=== PATIENT | male | born 1960 | race Caucasian/White ===

== ENCOUNTER 2019-12-14 02:08 | Outpatient (CLI) | payer MEDICAID, SELFPAY ==
[2019-12-14 09:52] LABS: Abs Immature Grans 0.03 10^3/uL (0.0-0.06); Absolute Basophil Count 0.04 10^3/uL (0.0-0.2); Absolute Eosinophil Count 0.14 10^3/uL (0.0-0.7); Absolute Lymphocyte Count 1.33 10^3/uL (1.2-3.4); Absolute Monocyte Count 0.56 10^3/uL (0.1-0.8); Absolute Neutrophil Count 4.45 10^3/uL (1.2-6.7); Basophils % 0.6; Eosinophils % 2.1; HCT 44.9 % (40.0-50.0); HGB 15.8 g/dL (13.5-17.5); Immature Grans % 0.5; Lymphocytes % 20.3; MCH 32.5 pg (27.0-33.0); MCHC 35.2 % (32.0-36.0); MCV 92.4 fL (80-95); MPV 8.3 fL (8.0-11.0); Monocytes % 8.5; Nucleated RBC 0 %; Platelet Count 156 10^3/uL (130-400); RBC 4.86 10^6/uL (4.36-5.78); RDW 14.1 % (11.8-14.1); RDW-SD 47.9 fL; WBC 6.55 10^3/uL (4.4-10.8)
[2019-12-14 10:06] LABS: ALT 16 U/L (16-63); AST 14 U/L (15-37); Albumin 3.9 g/dL (3.4-5.0); Alkaline Phosphatase 63 U/L (46-116); Anion Gap 4.3 mmol/L (3-11); BUN 12 mg/dL (7-18); Bilirubin, Total 0.4 mg/dL (0.2-1.0); CO2 32.7 mmol/L (21.0-32.0); CREATININE 0.84 mg/dL (0.70-1.30); Calcium 9.7 mg/dL (8.5-10.1); Chloride 100 mmol/L (98-107); Glucose 87 mg/dL (74-106); Potassium 4.3 mmol/L (3.5-5.1); Sodium 137 mmol/L (136-145); Total Protein 7.7 g/dL (6.4-8.2)
[2019-12-14 12:50] LABS: Bilirubin Negative (Negative); Blood Small (Negative); Clarity Clear (Clear); Glucose Negative (Negative); Ketones Negative (Negative); Leukocyte Esterase Negative (Negative); Nitrite Negative (Negative); Specific Gravity 1.025 (1.005-1.025); Urobilinogen 0.2 EU/dL (Up TO 0.2); pH 5.5 (5-8)
[2019-12-14 12:58] LABS: Bacteria Rare HPF (Negative); C & S Indicated? No; Casts Negative LPF (Negative); Crystals Negative HPF (Negative); Epithelial Cells Rare HPF (Negative); Mucus Trace (Negative); WBC 0-2 HPF (0-5)
== END 2019-12-14 02:28 ==
PROVIDERS: Nurse Practitioner Adult Health; Visit Provider Nurse Practitioner Family
DX: Z79.899 Other long term (current) drug therapy (principal); C71.9 Malignant neoplasm of brain, unspecified
CPT/HCPCS: 36415; 80053; 81003; 81015; 85025

== ENCOUNTER 2019-12-28 08:59 | Outpatient (CLI) | payer MEDICAID, SELFPAY ==
[2019-12-28 09:11] LABS: Abs Immature Grans 0.01 10^3/uL (0.0-0.06); Absolute Basophil Count 0.03 10^3/uL (0.0-0.2); Absolute Eosinophil Count 0.06 10^3/uL (0.0-0.7); Absolute Lymphocyte Count 1.16 10^3/uL (1.2-3.4); Absolute Monocyte Count 0.66 10^3/uL (0.1-0.8); Absolute Neutrophil Count 3.55 10^3/uL (1.2-6.7); Basophils % 0.5; Eosinophils % 1.1; HCT 43.3 % (40.0-50.0); HGB 15.4 g/dL (13.5-17.5); Immature Grans % 0.2; Lymphocytes % 21.2; MCH 32.5 pg (27.0-33.0); MCHC 35.6 % (32.0-36.0); MCV 91.4 fL (80-95); MPV 8.3 fL (8.0-11.0); Monocytes % 12.1; Neutrophils % 64.9; Nucleated RBC 0 %; Platelet Count 120 10^3/uL (130-400); RBC 4.74 10^6/uL (4.36-5.78); RDW 14.1 % (11.8-14.1); RDW-SD 47.3 fL; WBC 5.47 10^3/uL (4.4-10.8)
[2019-12-28 09:14] LABS: Bilirubin Negative (Negative); Blood Small (Negative); Clarity Clear (Clear); Glucose Negative (Negative); Ketones Negative (Negative); Leukocyte Esterase Negative (Negative); Nitrite Negative (Negative); Specific Gravity 1.015 (1.005-1.025); Urobilinogen 0.2 EU/dL (Up TO 0.2)
[2019-12-28 09:24] LABS: Bacteria Negative HPF (Negative); C & S Indicated? No; Casts Negative LPF (Negative); Crystals Negative HPF (Negative); Epithelial Cells Negative HPF (Negative); Mucus Negative (Negative); WBC 0-2 HPF (0-5)
[2019-12-28 09:32] LABS: ALT 17 U/L (16-63); AST 13 U/L (15-37); Albumin 3.8 g/dL (3.4-5.0); Alkaline Phosphatase 62 U/L (46-116); Anion Gap 3.5 mmol/L (3-11); BUN 12 mg/dL (7-18); Bilirubin, Total 0.3 mg/dL (0.2-1.0); CO2 30.5 mmol/L (21.0-32.0); CREATININE 0.76 mg/dL (0.70-1.30); Calcium 9.2 mg/dL (8.5-10.1); Chloride 98 mmol/L (98-107); Glucose 91 mg/dL (74-106); Potassium 4.2 mmol/L (3.5-5.1); Sodium 132 mmol/L (136-145); Total Protein 7.5 g/dL (6.4-8.2)
== END 2019-12-28 09:19 ==
PROVIDERS: Internal Medicine; Visit Provider Nurse Practitioner Adult Health
DX: C71.9 Malignant neoplasm of brain, unspecified (principal); Z51.11 Encounter for antineoplastic chemotherapy
CPT/HCPCS: 36415; 80053; 81003; 81015; 85025

== ENCOUNTER 2020-01-11 08:23 | Outpatient (CLI) | payer MEDICAID, SELFPAY ==
[2020-01-11 08:44] LABS: Bilirubin Negative (Negative); Blood Moderate (Negative); Clarity Clear (Clear); Glucose Negative (Negative); Ketones Negative (Negative); Leukocyte Esterase Negative (Negative); Nitrite Negative (Negative); Urobilinogen 0.2 EU/dL (Up TO 0.2); pH 7.5 (5-8)
[2020-01-11 08:44] LABS: Abs Immature Grans 0.02 10^3/uL (0.0-0.06); Absolute Basophil Count 0.03 10^3/uL (0.0-0.2); Absolute Eosinophil Count 0.06 10^3/uL (0.0-0.7); Absolute Lymphocyte Count 1.12 10^3/uL (1.2-3.4); Absolute Monocyte Count 0.56 10^3/uL (0.1-0.8); Absolute Neutrophil Count 4.71 10^3/uL (1.2-6.7); Basophils % 0.5; Eosinophils % 0.9; HCT 40.9 % (40.0-50.0); HGB 14.8 g/dL (13.5-17.5); Immature Grans % 0.3; Lymphocytes % 17.2; MCH 33.3 pg (27.0-33.0); MCHC 36.2 % (32.0-36.0); MCV 91.9 fL (80-95); Monocytes % 8.6; Neutrophils % 72.5; Nucleated RBC 0 %; RBC 4.45 10^6/uL (4.36-5.78); RDW 14.6 % (11.8-14.1)
[2020-01-11 08:54] LABS: ALT 19 U/L (16-63); AST 15 U/L (15-37); Albumin 3.9 g/dL (3.4-5.0); Alkaline Phosphatase 63 U/L (46-116); BUN 13 mg/dL (7-18); Bilirubin, Total 0.5 mg/dL (0.2-1.0); CREATININE 0.85 mg/dL (0.70-1.30); Calcium 9.1 mg/dL (8.5-10.1); Chloride 97 mmol/L (98-107); Glucose 119 mg/dL (74-106); Potassium 4.5 mmol/L (3.5-5.1); Sodium 133 mmol/L (136-145); Total Protein 7.8 g/dL (6.4-8.2)
[2020-01-11 09:01] LABS: Bacteria Negative HPF (Negative); C & S Indicated? No; Crystals Rare Triple Phos HPF (Negative); Epithelial Cells Negative HPF (Negative); Mucus Negative (Negative); WBC 0-2 HPF (0-5)
[2020-01-11 09:11] LABS: Platelet Count 31 10^3/uL (130-400)
== END 2020-01-11 08:43 ==
PROVIDERS: PCP Family Medicine; Visit Provider Internal Medicine
DX: C71.9 Malignant neoplasm of brain, unspecified (principal); Z51.11 Encounter for antineoplastic chemotherapy
CPT/HCPCS: 36415; 80053; 81003; 81015; 85025

== ENCOUNTER 2020-01-18 08:44 | Outpatient (CLI) | payer MEDICAID, SELFPAY ==
[2020-01-18 08:57] LABS: Bilirubin Negative (Negative); Blood Moderate (Negative); Clarity Clear (Clear); Glucose Negative (Negative); Ketones Negative (Negative); Leukocyte Esterase Negative (Negative); Nitrite Negative (Negative); Urobilinogen 0.2 EU/dL (Up TO 0.2); pH 6.5 (5-8)
[2020-01-18 09:13] LABS: Bacteria Negative HPF (Negative); C & S Indicated? No; Casts Negative LPF (Negative); Crystals Negative HPF (Negative); Epithelial Cells Few HPF (Negative); Mucus Negative (Negative); Other Cells Few Spermatozoa (Negative); RBC 20-50 HPF (0-2); WBC 0-2 HPF (0-5)
[2020-01-18 09:17] LABS: Abs Immature Grans 0.01 10^3/uL (0.0-0.06); Absolute Basophil Count 0.02 10^3/uL (0.0-0.2); Absolute Eosinophil Count 0.09 10^3/uL (0.0-0.7); Absolute Lymphocyte Count 1.12 10^3/uL (1.2-3.4); Absolute Monocyte Count 0.35 10^3/uL (0.1-0.8); Absolute Neutrophil Count 4.07 10^3/uL (1.2-6.7); Basophils % 0.4; Eosinophils % 1.6; HCT 39.4 % (40.0-50.0); Immature Grans % 0.2; Lymphocytes % 19.8; MCH 32.9 pg (27.0-33.0); MCHC 35.5 % (32.0-36.0); MCV 92.7 fL (80-95); MPV 10.2 fL (8.0-11.0); Monocytes % 6.2; Neutrophils % 71.8; Nucleated RBC 0 %; RBC 4.25 10^6/uL (4.36-5.78); RDW 14.9 % (11.8-14.1); RDW-SD 49.9 fL; WBC 5.66 10^3/uL (4.4-10.8)
[2020-01-18 09:30] LABS: Platelet Count 33 10^3/uL (130-400)
[2020-01-18 09:31] LABS: ALT 17 U/L (16-63); AST 13 U/L (15-37); Albumin 4.1 g/dL (3.4-5.0); Alkaline Phosphatase 54 U/L (46-116); Anion Gap 8.8 mmol/L (3-11); BUN 12 mg/dL (7-18); Bilirubin, Total 0.3 mg/dL (0.2-1.0); CO2 30.2 mmol/L (21.0-32.0); CREATININE 0.89 mg/dL (0.70-1.30); Calcium 9.2 mg/dL (8.5-10.1); Chloride 97 mmol/L (98-107); Glucose 118 mg/dL (74-106); Potassium 4.5 mmol/L (3.5-5.1); Sodium 136 mmol/L (136-145); Total Protein 7.8 g/dL (6.4-8.2)
== END 2020-01-18 09:04 ==
PROVIDERS: PCP Family Medicine; Visit Provider Internal Medicine
DX: C71.9 Malignant neoplasm of brain, unspecified (principal); Z51.11 Encounter for antineoplastic chemotherapy
CPT/HCPCS: 36415; 80053; 81003; 81015; 85025

== ENCOUNTER 2020-01-25 00:20 | Outpatient (CLI) | payer MEDICAID, SELFPAY ==
--- NOTE | 2020-01-25 | DI.MRI_ITS ---
EXAM: MR BRAIN WO/W CLINICAL HISTORY: F/U GLIOBLASTOMA,C71.9,ON LOMUSTINE AND AVASIN. TECHNIQUE: Multiplanar multisequence MRI was performed. COMPARISON: MR MRI BRAIN WWO from 11/23/2019 FINDINGS: MR examination of the brain was performed according to the usual protocol with additional post contra st axial and coronal T1 weighted imaging. Examination is compared with prior study from [facility] of November 22. 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 Comparison with the prior e xamination again shows postoperative encephalomalacia. Mild enhancement at the periphery of the rese ction site posteriorly is noted but is less prominent than on the prior examination. No new area of enhancement seen. Mild ex vacuo phenomenon of right lateral ventricle again noted. No new area of s ignal abnormality. The orbital and temporal bone structures appear intact. There is normal flow void in the [place] vasculature. Pituitary is unremarkable. IMPRESSION: Right temporal tumor resection site shows decreased peripheral enhancement in comparison with prior e xamination of November 22. No other significant change. DATA REPOSITORY:
[2020-01-25 08:53] LABS: HCT 36.8 % (40.0-50.0); HGB 13.1 g/dL (13.5-17.5); MCH 32.8 pg (27.0-33.0); MCHC 35.6 % (32.0-36.0); MPV 9.5 fL (8.0-11.0); Nucleated RBC 0 %; RDW-SD 49.3 fL; WBC 2.92 10^3/uL (4.4-10.8)
[2020-01-25 09:06] LABS: Platelet Count 74 10^3/uL (130-400)
[2020-01-25 09:07] LABS: Absolute Lymphocyte Count 0.91 10^3/uL (1.2-3.4); Absolute Monocyte Count 0.29 10^3/uL (0.1-0.8); Absolute Neutrophil Count 1.64 10^3/uL (1.2-6.7); Atypical Lymphocytes % 1
[2020-01-25 09:08] LABS: Absolute Eosinophil Count 0.06 10^3/uL (0.0-0.7); Diff Comment Manual Differential; Myelocytes % 1; Polychromasia Present
[2020-01-25] MEDS: Normal Saline Flush 10 ML SYR IVP (09:24)
[2020-01-25] MEDS: Gadoterate meglumine 20 ML VIAL 16 ML IVP (09:25)
== END 2020-01-25 00:40 ==
PROVIDERS: PCP Family Medicine; Visit Provider Internal Medicine
DX: C71.9 Malignant neoplasm of brain, unspecified (principal)
CPT/HCPCS: 70553; 85025

== ENCOUNTER 2020-02-08 02:58 | Outpatient (RCR) | payer MEDICAID, SELFPAY | END 2020-03-01 23:59 | disposition home or self-care (01) | LOC: INF 02:58 | PROVIDERS: PCP Family Medicine; Visit Provider Nurse Practitioner Adult Health | DX: Z53.9 Procedure and treatment not carried out, unspecified reason (principal) ==

== ENCOUNTER 2020-02-08 03:12 | Outpatient (CLI) | payer MEDICAID, SELFPAY ==
[2020-02-08 08:31] LABS: Abs Immature Grans 0.03 10^3/uL (0.0-0.06); Absolute Basophil Count 0.04 10^3/uL (0.0-0.2); Absolute Eosinophil Count 0.02 10^3/uL (0.0-0.7); Absolute Lymphocyte Count 1.02 10^3/uL (1.2-3.4); Absolute Monocyte Count 0.63 10^3/uL (0.1-0.8); Absolute Neutrophil Count 2.31 10^3/uL (1.2-6.7); Eosinophils % 0.5; HCT 38.6 % (40.0-50.0); HGB 13.7 g/dL (13.5-17.5); Immature Grans % 0.7; Lymphocytes % 25.2; MCH 33.4 pg (27.0-33.0); MCHC 35.5 % (32.0-36.0); MCV 94.1 fL (80-95); MPV 8.6 fL (8.0-11.0); Monocytes % 15.6; Nucleated RBC 0 %; Platelet Count 151 10^3/uL (130-400); RDW 16.5 % (11.8-14.1); RDW-SD 56.8 fL; WBC 4.05 10^3/uL (4.4-10.8)
[2020-02-08 08:33] LABS: Bilirubin Negative (Negative); Blood Small (Negative); Clarity Clear (Clear); Glucose Negative (Negative); Ketones Negative (Negative); Leukocyte Esterase Negative (Negative); Nitrite Negative (Negative); Urobilinogen 0.2 EU/dL (Up TO 0.2); pH 6.5 (5-8)
[2020-02-08 08:42] LABS: ALT 18 U/L (16-63); AST 11 U/L (15-37); Albumin 3.7 g/dL (3.4-5.0); Alkaline Phosphatase 57 U/L (46-116); Anion Gap 6.1 mmol/L (3-11); BUN 10 mg/dL (7-18); Bilirubin, Total 0.2 mg/dL (0.2-1.0); CO2 26.9 mmol/L (21.0-32.0); CREATININE 0.95 mg/dL (0.70-1.30); Chloride 100 mmol/L (98-107); Glucose 129 mg/dL (74-106); Potassium 4.1 mmol/L (3.5-5.1); Sodium 133 mmol/L (136-145); Total Protein 7.3 g/dL (6.4-8.2)
[2020-02-08 08:43] LABS: Bacteria Rare HPF (Negative); C & S Indicated? No; Casts Negative LPF (Negative); Crystals Negative HPF (Negative); Epithelial Cells Negative HPF (Negative); Mucus Moderate (Negative); WBC 0-2 HPF (0-5)
== END 2020-02-08 03:32 ==
PROVIDERS: Nurse Practitioner Adult Health; PCP Family Medicine; Visit Provider Internal Medicine
DX: C71.9 Malignant neoplasm of brain, unspecified (principal); Z51.11 Encounter for antineoplastic chemotherapy
CPT/HCPCS: 36415; 80053; 81003; 81015; 85025

== ENCOUNTER 2020-02-22 02:43 | Outpatient (CLI) | payer MEDICAID, SELFPAY ==
[2020-02-22 11:38] LABS: Abs Immature Grans 0.04 10^3/uL (0.0-0.06); Absolute Basophil Count 0.04 10^3/uL (0.0-0.2); Absolute Eosinophil Count 0.14 10^3/uL (0.0-0.7); Absolute Lymphocyte Count 1.23 10^3/uL (1.2-3.4); Absolute Monocyte Count 0.65 10^3/uL (0.1-0.8); Absolute Neutrophil Count 3.45 10^3/uL (1.2-6.7); Basophils % 0.7; Eosinophils % 2.5; HCT 38.6 % (40.0-50.0); HGB 13.9 g/dL (13.5-17.5); Immature Grans % 0.7; Lymphocytes % 22.2; MCH 33.8 pg (27.0-33.0); MCV 93.9 fL (80-95); MPV 8.5 fL (8.0-11.0); Monocytes % 11.7; Neutrophils % 62.2; Nucleated RBC 0 %; Platelet Count 145 10^3/uL (130-400); RBC 4.11 10^6/uL (4.36-5.78); RDW 17.2 % (11.8-14.1); RDW-SD 59.8 fL; WBC 5.55 10^3/uL (4.4-10.8)
[2020-02-22 11:40] LABS: Bilirubin Negative (Negative); Blood Moderate (Negative); Clarity Clear (Clear); Glucose Negative (Negative); Ketones Negative (Negative); Leukocyte Esterase Negative (Negative); Nitrite Negative (Negative); Specific Gravity 1.025 (1.005-1.025); Urobilinogen 0.2 EU/dL (Up TO 0.2)
[2020-02-22 11:59] LABS: ALT 23 U/L (16-63); AST 14 U/L (15-37); Albumin 3.7 g/dL (3.4-5.0); Alkaline Phosphatase 46 U/L (46-116); Anion Gap 8.7 mmol/L (3-11); BUN 16 mg/dL (7-18); Bilirubin, Total 0.3 mg/dL (0.2-1.0); CO2 26.3 mmol/L (21.0-32.0); CREATININE 0.97 mg/dL (0.70-1.30); Chloride 99 mmol/L (98-107); Glucose 129 mg/dL (74-106); Sodium 134 mmol/L (136-145); Total Protein 7.4 g/dL (6.4-8.2)
[2020-02-22 12:03] LABS: WBC 0-2 HPF (0-5)
[2020-02-22 12:04] LABS: Bacteria Rare HPF (Negative); C & S Indicated? No; Casts Negative LPF (Negative); Crystals Negative HPF (Negative); Epithelial Cells Rare HPF (Negative); Mucus Negative (Negative)
== END 2020-02-22 03:03 ==
PROVIDERS: PCP Family Medicine; Visit Provider Internal Medicine
DX: C71.9 Malignant neoplasm of brain, unspecified (principal); Z51.11 Encounter for antineoplastic chemotherapy
CPT/HCPCS: 36415; 80053; 81003; 81015; 85025

== ENCOUNTER 2020-03-07 04:54 | Outpatient (CLI) | payer MEDICAID, SELFPAY ==
[2020-03-07 11:22] LABS: Abs Immature Grans 0.02 10^3/uL (0.0-0.06); Absolute Basophil Count 0.05 10^3/uL (0.0-0.2); Absolute Eosinophil Count 0.13 10^3/uL (0.0-0.7); Absolute Lymphocyte Count 1.06 10^3/uL (1.2-3.4); Absolute Monocyte Count 0.71 10^3/uL (0.1-0.8); Absolute Neutrophil Count 4.18 10^3/uL (1.2-6.7); Basophils % 0.8; Eosinophils % 2.1; HCT 42.2 % (40.0-50.0); HGB 14.8 g/dL (13.5-17.5); Immature Grans % 0.3; Lymphocytes % 17.2; MCH 33.7 pg (27.0-33.0); MCHC 35.1 % (32.0-36.0); MCV 96.1 fL (80-95); MPV 8.5 fL (8.0-11.0); Monocytes % 11.5; Neutrophils % 68.1; Nucleated RBC 0 %; Platelet Count 148 10^3/uL (130-400); RBC 4.39 10^6/uL (4.36-5.78); RDW 16.5 % (11.8-14.1); RDW-SD 58.9 fL; WBC 6.15 10^3/uL (4.4-10.8)
[2020-03-07 11:23] LABS: Bilirubin Negative (Negative); Blood Small (Negative); Clarity Clear (Clear); Glucose Negative (Negative); Ketones Negative (Negative); Leukocyte Esterase Negative (Negative); Nitrite Negative (Negative); Specific Gravity 1.025 (1.005-1.025); Urobilinogen 0.2 EU/dL (Up TO 0.2)
[2020-03-07 11:35] LABS: Bacteria Negative HPF (Negative); C & S Indicated? No; Casts Negative LPF (Negative); Crystals Negative HPF (Negative); Epithelial Cells Rare HPF (Negative); Mucus Negative (Negative); WBC 0-2 HPF (0-5)
[2020-03-07 12:43] LABS: ALT 24 U/L (16-63); AST 13 U/L (15-37)
[2020-03-07 12:49] LABS: Calcium 9.1 mg/dL (8.5-10.1); Glucose 116 mg/dL (74-106)
[2020-03-07 12:50] LABS: Albumin 3.7 g/dL (3.4-5.0); BUN 13 mg/dL (7-18); Bilirubin, Total 0.3 mg/dL (0.2-1.0); CREATININE 0.85 mg/dL (0.70-1.30); Total Protein 7.7 g/dL (6.4-8.2)
[2020-03-07 12:51] LABS: Alkaline Phosphatase 54 U/L (46-116); Anion Gap 8.5 mmol/L (3-11); CO2 29.5 mmol/L (21.0-32.0); Chloride 97 mmol/L (98-107); Potassium 4.1 mmol/L (3.5-5.1); Sodium 135 mmol/L (136-145)
== END 2020-03-07 05:14 ==
PROVIDERS: PCP Family Medicine; Visit Provider Internal Medicine
DX: C71.9 Malignant neoplasm of brain, unspecified (principal); Z51.11 Encounter for antineoplastic chemotherapy
CPT/HCPCS: 36415; 80053; 81003; 81015; 85025

== ENCOUNTER 2020-03-21 02:03 | Outpatient (CLI) | payer MEDICAID, SELFPAY ==
--- NOTE | 2020-03-21 | DI.MRI_ITS ---
EXAM: MR BRAIN WO/W CLINICAL HISTORY: H/O GLIOBLASTOMA,C71.9,ON TREATMENT,? RESPONSE TECHNIQUE: Multiplanar multisequence MRI of the brain was performed. CONTRAST MATERIAL: IV Contrast: 15 ML of Dotarem contrast administered. COMPARISON: MR MR BRAIN WO/W from 01/25/2020 MR MR BRAIN WO/W from 01/25/2020 FINDINGS: VENTRICLES AND EXTRA AXIAL SPACES: Stable compared to the prior examination. HEMORRHAGE: None. CEREBRAL PARENCHYMA: No focus of restricted diffusion to suggest acute infarct. There are again seen postsurgical changes of a glioblastoma removal from the right temporal lobe. Postsurgical encephalom alacia is again seen in the region. There has been no change in the hyperintense signal in the white matter on the T2 and FLAIR images or the enhancement pattern compared to the prior examination. No new areas of abnormal signal or enhancement are present. MIDLINE SHIFT: None. BRAINSTEM/CEREBELLUM: Normal. CALVARIUM: Findings of a prior right temporal craniotomy. ENHANCEMENT: No new areas of enhancement are seen compared to 01/25/2020. VISUALIZED PARANASAL SINUSES/MASTOIDS: Clear. [place]: Normal flow void. PITUITARY GLAND: Unremarkable. OTHER FINDINGS: IMPRESSION: Stable postsurgical changes involving the right temporal lobe. No new areas of abnormal signal or en hancement are seen. DATA REPOSITORY:
[2020-03-21 08:08] LABS: Bilirubin Negative (Negative); Blood Small (Negative); Clarity Clear (Clear); Glucose Negative (Negative); Ketones Negative (Negative); Leukocyte Esterase Negative (Negative); Nitrite Negative (Negative); Specific Gravity 1.025 (1.005-1.025); Urobilinogen 0.2 EU/dL (Up TO 0.2)
[2020-03-21 08:15] LABS: Abs Immature Grans 0.01 10^3/uL (0.0-0.06); Absolute Basophil Count 0.05 10^3/uL (0.0-0.2); Absolute Eosinophil Count 0.12 10^3/uL (0.0-0.7); Absolute Lymphocyte Count 0.98 10^3/uL (1.2-3.4); Absolute Monocyte Count 0.54 10^3/uL (0.1-0.8); Absolute Neutrophil Count 4.07 10^3/uL (1.2-6.7); Basophils % 0.9; Eosinophils % 2.1; HCT 43.7 % (40.0-50.0); HGB 15.1 g/dL (13.5-17.5); Immature Grans % 0.2; MCH 33.3 pg (27.0-33.0); MCHC 34.6 % (32.0-36.0); MCV 96.3 fL (80-95); MPV 8.6 fL (8.0-11.0); Monocytes % 9.4; Neutrophils % 70.4; Nucleated RBC 0 %; Platelet Count 131 10^3/uL (130-400); RBC 4.54 10^6/uL (4.36-5.78); RDW 15.6 % (11.8-14.1); RDW-SD 55.9 fL; WBC 5.77 10^3/uL (4.4-10.8)
[2020-03-21 08:20] LABS: Epithelial Cells Rare HPF (Negative); WBC 0-2 HPF (0-5)
[2020-03-21 08:21] LABS: Bacteria Rare HPF (Negative); C & S Indicated? No; Casts Negative LPF (Negative); Crystals Rare Amorphous HPF (Negative); Mucus Moderate (Negative)
[2020-03-21 08:32] LABS: ALT 22 U/L (16-63); AST 17 U/L (15-37); Albumin 3.8 g/dL (3.4-5.0); Alkaline Phosphatase 53 U/L (46-116); Anion Gap 3.9 mmol/L (3-11); BUN 13 mg/dL (7-18); Bilirubin, Total 0.4 mg/dL (0.2-1.0); CO2 31.1 mmol/L (21.0-32.0); CREATININE 0.96 mg/dL (0.70-1.30); Calcium 8.9 mg/dL (8.5-10.1); Chloride 98 mmol/L (98-107); Glucose 91 mg/dL (74-106); Potassium 3.8 mmol/L (3.5-5.1); Sodium 133 mmol/L (136-145); Total Protein 7.8 g/dL (6.4-8.2)
[2020-03-21] MEDS: Gadoterate meglumine 20 ML VIAL 15 ML IVP (08:44)
[2020-03-21] MEDS: Normal Saline Flush 10 ML SYR IVP (08:45)
== END 2020-03-21 02:23 ==
PROVIDERS: Nurse Practitioner Adult Health; PCP Family Medicine; Visit Provider Nurse Practitioner Family
DX: C71.9 Malignant neoplasm of brain, unspecified (principal); Z51.11 Encounter for antineoplastic chemotherapy
CPT/HCPCS: 70553; 80053; 81003; 81015; 85025

== ENCOUNTER 2020-03-21 03:16 | Outpatient (RCR) | payer MEDICAID, SELFPAY | END 2020-04-01 23:59 | disposition home or self-care (01) | LOC: INF 03:16 | PROVIDERS: PCP Family Medicine; Visit Provider Nurse Practitioner Adult Health | DX: Z53.9 Procedure and treatment not carried out, unspecified reason (principal) ==

== ENCOUNTER 2020-04-04 03:52 | Outpatient (CLI) | payer MEDICAID, SELFPAY ==
[2020-04-04 10:11] LABS: Abs Immature Grans 0.02 10^3/uL (0.0-0.06); Absolute Basophil Count 0.03 10^3/uL (0.0-0.2); Absolute Eosinophil Count 0.09 10^3/uL (0.0-0.7); Absolute Lymphocyte Count 0.89 10^3/uL (1.2-3.4); Absolute Monocyte Count 0.55 10^3/uL (0.1-0.8); Absolute Neutrophil Count 3.79 10^3/uL (1.2-6.7); Basophils % 0.6; Eosinophils % 1.7; HCT 42.6 % (40.0-50.0); HGB 15.1 g/dL (13.5-17.5); Immature Grans % 0.4; Lymphocytes % 16.6; MCH 33.6 pg (27.0-33.0); MCHC 35.4 % (32.0-36.0); MCV 94.7 fL (80-95); MPV 8.8 fL (8.0-11.0); Monocytes % 10.2; Neutrophils % 70.5; Nucleated RBC 0 %; Platelet Count 129 10^3/uL (130-400); RDW 14.6 % (11.8-14.1); RDW-SD 51.3 fL; WBC 5.37 10^3/uL (4.4-10.8)
[2020-04-04 10:13] LABS: Bilirubin Negative (Negative); Blood Trace-intact (Negative); Clarity Clear (Clear); Glucose Negative (Negative); Ketones Negative (Negative); Leukocyte Esterase Negative (Negative); Nitrite Negative (Negative); Urobilinogen 0.2 EU/dL (Up TO 0.2); pH 7.5 (5-8)
[2020-04-04 10:27] LABS: ALT 23 U/L (16-63); AST 17 U/L (15-37); Albumin 3.9 g/dL (3.4-5.0); Alkaline Phosphatase 54 U/L (46-116); Anion Gap 9.5 mmol/L (3-11); BUN 11 mg/dL (7-18); Bilirubin, Total 0.4 mg/dL (0.2-1.0); CO2 26.5 mmol/L (21.0-32.0); CREATININE 0.9 mg/dL (0.70-1.30); Calcium 9.4 mg/dL (8.5-10.1); Chloride 97 mmol/L (98-107); Glucose 114 mg/dL (74-106); Potassium 4.1 mmol/L (3.5-5.1); Sodium 133 mmol/L (136-145); Total Protein 7.9 g/dL (6.4-8.2)
[2020-04-04 10:50] LABS: Epithelial Cells Rare HPF (Negative); WBC 0-2 HPF (0-5)
[2020-04-04 10:51] LABS: Bacteria Rare HPF (Negative); C & S Indicated? No; Casts Negative LPF (Negative); Crystals Negative HPF (Negative); Mucus Negative (Negative)
== END 2020-04-04 03:53 | disposition home or self-care (01) ==
LOC: LBO 03:52
PROVIDERS: Nurse Practitioner Adult Health; PCP Family Medicine; Visit Provider Internal Medicine
DX: C71.9 Malignant neoplasm of brain, unspecified (principal); Z51.11 Encounter for antineoplastic chemotherapy
CPT/HCPCS: 36415; 80053; 81003; 81015; 85025

== ENCOUNTER 2020-04-18 03:19 | Outpatient (CLI) | payer MEDICAID, SELFPAY ==
[2020-04-18 10:50] LABS: Abs Immature Grans 0.02 10^3/uL (0.0-0.06); Absolute Basophil Count 0.03 10^3/uL (0.0-0.2); Absolute Eosinophil Count 0.08 10^3/uL (0.0-0.7); Absolute Lymphocyte Count 1.02 10^3/uL (1.2-3.4); Absolute Monocyte Count 0.49 10^3/uL (0.1-0.8); Absolute Neutrophil Count 3.06 10^3/uL (1.2-6.7); Basophils % 0.6; Eosinophils % 1.7; HCT 41.2 % (40.0-50.0); HGB 14.6 g/dL (13.5-17.5); Immature Grans % 0.4; Lymphocytes % 21.7; MCH 33.6 pg (27.0-33.0); MCHC 35.4 % (32.0-36.0); MCV 94.7 fL (80-95); Monocytes % 10.4; Neutrophils % 65.2; Nucleated RBC 0 %; Platelet Count 146 10^3/uL (130-400); RBC 4.35 10^6/uL (4.36-5.78); RDW 14.2 % (11.8-14.1); RDW-SD 49.6 fL
[2020-04-18 11:13] LABS: Bilirubin Negative (Negative); Blood Trace-intact (Negative); Clarity Clear (Clear); Glucose Negative (Negative); Ketones Negative (Negative); Leukocyte Esterase Negative (Negative); Nitrite Negative (Negative); Specific Gravity 1.025 (1.005-1.025); Urobilinogen 0.2 EU/dL (Up TO 0.2); pH 6.5 (5-8)
[2020-04-18 11:25] LABS: Epithelial Cells Rare HPF (Negative); Other Cells Moderate Spermatozoa (Negative); RBC 0-2 HPF (0-2); WBC 0-2 HPF (0-5)
[2020-04-18 11:26] LABS: Bacteria Rare HPF (Negative); C & S Indicated? No; Casts Negative LPF (Negative); Crystals Negative HPF (Negative); Mucus Trace (Negative)
[2020-04-18 11:52] LABS: ALT 19 U/L (16-63); AST 16 U/L (15-37); Albumin 3.8 g/dL (3.4-5.0); Alkaline Phosphatase 55 U/L (46-116); Anion Gap 11.3 mmol/L (3-11); BUN 14 mg/dL (7-18); Bilirubin, Total 0.3 mg/dL (0.2-1.0); CO2 26.7 mmol/L (21.0-32.0); CREATININE 0.9 mg/dL (0.70-1.30); Calcium 9.3 mg/dL (8.5-10.1); Chloride 98 mmol/L (98-107); Glucose 120 mg/dL (74-106); Potassium 4.1 mmol/L (3.5-5.1); Sodium 136 mmol/L (136-145); Total Protein 7.3 g/dL (6.4-8.2)
== END 2020-04-18 03:20 | disposition home or self-care (01) ==
LOC: LBO 03:19
PROVIDERS: PCP Family Medicine; Visit Provider Internal Medicine
DX: C71.9 Malignant neoplasm of brain, unspecified (principal); Z51.11 Encounter for antineoplastic chemotherapy
CPT/HCPCS: 36415; 80053; 81003; 81015; 85025

== ENCOUNTER 2020-05-02 04:25 | Outpatient (CLI) | payer MEDICAID, SELFPAY ==
[2020-05-02 09:43] LABS: Abs Immature Grans 0.02 10^3/uL (0.0-0.06); Absolute Basophil Count 0.04 10^3/uL (0.0-0.2); Absolute Eosinophil Count 0.08 10^3/uL (0.0-0.7); Absolute Lymphocyte Count 0.89 10^3/uL (1.2-3.4); Absolute Monocyte Count 0.61 10^3/uL (0.1-0.8); Absolute Neutrophil Count 3.53 10^3/uL (1.2-6.7); Basophils % 0.8; Eosinophils % 1.5; HCT 45.3 % (40.0-50.0); HGB 15.7 g/dL (13.5-17.5); Immature Grans % 0.4; Lymphocytes % 17.2; MCH 33.6 pg (27.0-33.0); MCHC 34.7 % (32.0-36.0); MPV 8.3 fL (8.0-11.0); Monocytes % 11.8; Neutrophils % 68.3; Nucleated RBC 0 %; Platelet Count 141 10^3/uL (130-400); RBC 4.67 10^6/uL (4.36-5.78); RDW 13.7 % (11.8-14.1); RDW-SD 49.1 fL; WBC 5.17 10^3/uL (4.4-10.8)
[2020-05-02 09:43] LABS: Bilirubin Negative (Negative); Blood Trace-intact (Negative); Clarity Clear (Clear); Glucose Negative (Negative); Ketones Negative (Negative); Leukocyte Esterase Negative (Negative); Nitrite Negative (Negative); Specific Gravity 1.025 (1.005-1.025); Urobilinogen 0.2 EU/dL (Up TO 0.2)
[2020-05-02 09:52] LABS: Epithelial Cells Rare HPF (Negative); RBC 0-2 HPF (0-2); WBC 0-2 HPF (0-5)
[2020-05-02 09:53] LABS: Bacteria Negative HPF (Negative); C & S Indicated? No; Casts Negative LPF (Negative); Crystals Negative HPF (Negative); Mucus Trace (Negative)
[2020-05-02 10:03] LABS: ALT 22 U/L (16-63); AST 17 U/L (15-37); Albumin 3.8 g/dL (3.4-5.0); Alkaline Phosphatase 60 U/L (46-116); Anion Gap 4.6 mmol/L (3-11); BUN 18 mg/dL (7-18); Bilirubin, Total 0.4 mg/dL (0.2-1.0); CO2 31.4 mmol/L (21.0-32.0); CREATININE 0.9 mg/dL (0.70-1.30); Calcium 9.5 mg/dL (8.5-10.1); Chloride 98 mmol/L (98-107); Glucose 105 mg/dL (74-106); Sodium 134 mmol/L (136-145)
== END 2020-05-02 04:26 | disposition home or self-care (01) ==
LOC: LBO 04:26
PROVIDERS: PCP Family Medicine; Visit Provider Internal Medicine
DX: C71.9 Malignant neoplasm of brain, unspecified (principal); Z51.11 Encounter for antineoplastic chemotherapy
CPT/HCPCS: 36415; 80053; 81003; 81015; 85025

== ENCOUNTER 2020-05-16 00:51 | Outpatient (CLI) | payer MEDICAID, SELFPAY ==
--- NOTE | 2020-05-16 | DI.MRI_ITS ---
EXAM: MR BRAIN WO/W CLINICAL HISTORY: F/U GLIOBLASTOMA,C71.9 TECHNIQUE: Multiplanar multisequence MRI of the brain was performed. Both noninfused and contrast i nfused sequences were performed. IV Contrast injected was 16 cc Dotarem. COMPARISON: MR MR BRAIN WO/W from 03/21/2020 MR MR BRAIN WO/W from 03/21/2020 FINDINGS: CEREBRAL PARENCHYMA: Again noted is evidence of right temporal craniotomy. There is continued stable appearance of the operative site with thumb no evidence of new signal abnormality nor new abnormal e nhancement in this region nor elsewhere in the brain. White matter signal abnormality also remain st able. Ventricular size is unchanged. No shift. No new abnormal meningeal enhancement. No new abnormal signal evident on the diffusion imaging sequence. PITUITARY GLAND: No mass nor parasellar abnormality. No obvious abnormality in the cavernous sinuses. FLOW VOIDS: The expected flow void are noted. No evidence of obvious aneurysm nor obvious vascular ma lformation. PARANASAL SINUSES: There is mucosal thickening in the right side of the severe noted sinuses which vinson s significantly increased from the prior study. The left sphenoid sinus remains clear. Other parana lio sinuses as well as ethmoid air cells are clear. ORBITS: No new abnormal findings. IMPRESSION: 1. No new significant intracranial findings. Stable appearance of the right temporal operative site when compared to the prior study of 03/21/2020. No new ring-enhancing lesions nor abnormal meningeal enhancement. 2. There is now increased to mucosal thickening and fluid in the central and right-sided sphenoid sin uses, more so than previous. The left sphenoid sinus is clear as are the other paranasal sinuses. T here is also some signal abnormality in the right mastoid air cells which was evident on the prior st udy. The left mastoid air cells appear unremarkable. DATA REPOSITORY:
[2020-05-16 07:31] LABS: Bilirubin Negative (Negative); Blood Trace-intact (Negative); Clarity Clear (Clear); Glucose Negative (Negative); Ketones Negative (Negative); Leukocyte Esterase Negative (Negative); Nitrite Negative (Negative); Urobilinogen 0.2 EU/dL (Up TO 0.2)
[2020-05-16 07:44] LABS: Bacteria Rare HPF (Negative); C & S Indicated? No; Casts Negative LPF (Negative); Crystals Negative HPF (Negative); Epithelial Cells Negative HPF (Negative); Mucus Trace (Negative); Other Cells Negative (Negative); WBC 0-2 HPF (0-5)
[2020-05-16 08:11] LABS: Abs Immature Grans 0.01 10^3/uL (0.0-0.06); Absolute Basophil Count 0.04 10^3/uL (0.0-0.2); Absolute Eosinophil Count 0.08 10^3/uL (0.0-0.7); Absolute Lymphocyte Count 0.89 10^3/uL (1.2-3.4); Absolute Monocyte Count 0.54 10^3/uL (0.1-0.8); Absolute Neutrophil Count 3.43 10^3/uL (1.2-6.7); Basophils % 0.8; Eosinophils % 1.6; HGB 14.7 g/dL (13.5-17.5); Immature Grans % 0.2; Lymphocytes % 17.8; MCH 33.7 pg (27.0-33.0); MCV 96.3 fL (80-95); MPV 8.3 fL (8.0-11.0); Monocytes % 10.8; Neutrophils % 68.8; Nucleated RBC 0 %; Platelet Count 145 10^3/uL (130-400); RBC 4.36 10^6/uL (4.36-5.78); RDW 13.2 % (11.8-14.1); RDW-SD 47.6 fL; WBC 4.99 10^3/uL (4.4-10.8)
[2020-05-16] MEDS: Gadoterate meglumine 20 ML VIAL 10 ML IVP (08:22)
[2020-05-16] MEDS: Normal Saline Flush 10 ML SYR IVP (08:23)
[2020-05-16 08:24] LABS: ALT 22 U/L (16-63); AST 16 U/L (15-37); Albumin 3.5 g/dL (3.4-5.0); Alkaline Phosphatase 63 U/L (46-116); BUN 13 mg/dL (7-18); Bilirubin, Total 0.2 mg/dL (0.2-1.0); CREATININE 0.8 mg/dL (0.70-1.30); Calcium 8.9 mg/dL (8.5-10.1); Chloride 96 mmol/L (98-107); Glucose 101 mg/dL (74-106); Potassium 3.7 mmol/L (3.5-5.1); Sodium 132 mmol/L (136-145); Total Protein 7.5 g/dL (6.4-8.2)
== END 2020-05-16 01:11 ==
PROVIDERS: PCP Family Medicine; Visit Provider Internal Medicine
DX: C71.9 Malignant neoplasm of brain, unspecified (principal); J34.89 Other specified disorders of nose and nasal sinuses; Z51.11 Encounter for antineoplastic chemotherapy
CPT/HCPCS: 70553; 80053; 81003; 81015; 85025

== ENCOUNTER 2020-05-30 03:34 | Outpatient (CLI) | payer MEDICAID, SELFPAY ==
[2020-05-30 08:39] LABS: Bilirubin Negative (Negative); Blood Small (Negative); Clarity Clear (Clear); Glucose Negative (Negative); Ketones Trace mg/dL (Negative); Leukocyte Esterase Negative (Negative); Nitrite Negative (Negative); Specific Gravity 1.025 (1.005-1.025); Urobilinogen 0.2 EU/dL (Up TO 0.2); pH 5.5 (5-8)
[2020-05-30 08:49] LABS: Abs Immature Grans 0.02 10^3/uL (0.0-0.06); Absolute Basophil Count 0.04 10^3/uL (0.0-0.2); Absolute Eosinophil Count 0.12 10^3/uL (0.0-0.7); Absolute Lymphocyte Count 0.74 10^3/uL (1.2-3.4); Absolute Monocyte Count 0.62 10^3/uL (0.1-0.8); Absolute Neutrophil Count 3.81 10^3/uL (1.2-6.7); Basophils % 0.7; Eosinophils % 2.2; HCT 44.3 % (40.0-50.0); HGB 15.3 g/dL (13.5-17.5); Immature Grans % 0.4; Lymphocytes % 13.8; MCH 33.1 pg (27.0-33.0); MCHC 34.5 % (32.0-36.0); MCV 95.9 fL (80-95); MPV 8.4 fL (8.0-11.0); Monocytes % 11.6; Neutrophils % 71.3; Nucleated RBC 0 %; Platelet Count 143 10^3/uL (130-400); RBC 4.62 10^6/uL (4.36-5.78); RDW 13.3 % (11.8-14.1); RDW-SD 47.8 fL; WBC 5.35 10^3/uL (4.4-10.8)
[2020-05-30 08:52] LABS: Bacteria Few HPF (Negative); Crystals Negative HPF (Negative); Epithelial Cells Rare HPF (Negative); Mucus Moderate (Negative); WBC 0-2 HPF (0-5)
[2020-05-30 08:53] LABS: C & S Indicated? No
[2020-05-30 09:05] LABS: ALT 21 U/L (16-63); AST 17 U/L (15-37); Albumin 3.6 g/dL (3.4-5.0); Alkaline Phosphatase 62 U/L (46-116); Anion Gap 5.7 mmol/L (3-11); BUN 11 mg/dL (7-18); Bilirubin, Total 0.3 mg/dL (0.2-1.0); CO2 30.3 mmol/L (21.0-32.0); Calcium 9.3 mg/dL (8.5-10.1); Chloride 98 mmol/L (98-107); Glucose 117 mg/dL (74-106); Potassium 4.4 mmol/L (3.5-5.1); Sodium 134 mmol/L (136-145); Total Protein 7.9 g/dL (6.4-8.2)
== END 2020-05-30 03:35 | disposition home or self-care (01) ==
LOC: LBO 03:34
PROVIDERS: PCP Family Medicine; Visit Provider Internal Medicine
DX: C71.9 Malignant neoplasm of brain, unspecified (principal)
CPT/HCPCS: 36415; 80053; 81003; 81015; 85025

== ENCOUNTER 2020-06-13 03:09 | Outpatient (CLI) | payer MEDICAID, SELFPAY ==
[2020-06-13 09:39] LABS: Abs Immature Grans 0.02 10^3/uL (0.0-0.06); Absolute Basophil Count 0.04 10^3/uL (0.0-0.2); Absolute Eosinophil Count 0.12 10^3/uL (0.0-0.7); Absolute Lymphocyte Count 1.01 10^3/uL (1.2-3.4); Absolute Monocyte Count 0.47 10^3/uL (0.1-0.8); Absolute Neutrophil Count 4.33 10^3/uL (1.2-6.7); Basophils % 0.7; HCT 44.5 % (40.0-50.0); HGB 15.4 g/dL (13.5-17.5); Immature Grans % 0.3; Lymphocytes % 16.9; MCH 32.8 pg (27.0-33.0); MCHC 34.6 % (32.0-36.0); MCV 94.7 fL (80-95); MPV 8.2 fL (8.0-11.0); Monocytes % 7.8; Neutrophils % 72.3; Nucleated RBC 0 %; Platelet Count 158 10^3/uL (130-400); RDW 13.4 % (11.8-14.1); RDW-SD 47.5 fL; WBC 5.99 10^3/uL (4.4-10.8)
[2020-06-13 09:45] LABS: Bilirubin Negative (Negative); Blood Small (Negative); Clarity Clear (Clear); Glucose Negative (Negative); Ketones Negative (Negative); Leukocyte Esterase Negative (Negative); Nitrite Negative (Negative); Urobilinogen 0.2 EU/dL (Up TO 0.2)
[2020-06-13 09:51] LABS: ALT 23 U/L (16-63); AST 16 U/L (15-37); Albumin 3.6 g/dL (3.4-5.0); Alkaline Phosphatase 61 U/L (46-116); Anion Gap 6.1 mmol/L (3-11); BUN 11 mg/dL (7-18); Bilirubin, Total 0.3 mg/dL (0.2-1.0); CO2 31.9 mmol/L (21.0-32.0); Calcium 9.6 mg/dL (8.5-10.1); Chloride 97 mmol/L (98-107); Glucose 112 mg/dL (74-106); Potassium 4.1 mmol/L (3.5-5.1); Sodium 135 mmol/L (136-145); Total Protein 7.9 g/dL (6.4-8.2)
[2020-06-13 09:54] LABS: WBC 0-2 HPF (0-5)
[2020-06-13 09:55] LABS: Bacteria Negative HPF (Negative); C & S Indicated? No; Casts Negative LPF (Negative); Crystals Negative HPF (Negative); Epithelial Cells Rare HPF (Negative); Mucus Trace (Negative); Other Cells Negative (Negative)
== END 2020-06-13 03:10 | disposition home or self-care (01) ==
LOC: LBO 03:09
PROVIDERS: PCP Family Medicine; Visit Provider Internal Medicine
DX: C71.9 Malignant neoplasm of brain, unspecified (principal); Z51.11 Encounter for antineoplastic chemotherapy
CPT/HCPCS: 36415; 80053; 81003; 81015; 85025

== ENCOUNTER 2020-06-27 03:34 | Outpatient (CLI) | payer MEDICAID, SELFPAY ==
[2020-06-27 09:44] LABS: Abs Immature Grans 0.02 10^3/uL (0.0-0.06); Absolute Basophil Count 0.04 10^3/uL (0.0-0.2); Absolute Eosinophil Count 0.09 10^3/uL (0.0-0.7); Absolute Lymphocyte Count 1.05 10^3/uL (1.2-3.4); Absolute Monocyte Count 0.45 10^3/uL (0.1-0.8); Absolute Neutrophil Count 4.83 10^3/uL (1.2-6.7); Basophils % 0.6; Eosinophils % 1.4; HCT 44.8 % (40.0-50.0); HGB 15.4 g/dL (13.5-17.5); Immature Grans % 0.3; Lymphocytes % 16.2; MCH 32.4 pg (27.0-33.0); MCHC 34.4 % (32.0-36.0); MCV 94.1 fL (80-95); MPV 7.9 fL (8.0-11.0); Monocytes % 6.9; Neutrophils % 74.6; Nucleated RBC 0 %; Platelet Count 121 10^3/uL (130-400); RBC 4.76 10^6/uL (4.36-5.78); RDW-SD 48.2 fL; WBC 6.48 10^3/uL (4.4-10.8)
[2020-06-27 10:01] LABS: ALT 21 U/L (16-63); AST 15 U/L (15-37); Albumin 3.7 g/dL (3.4-5.0); Alkaline Phosphatase 58 U/L (46-116); Anion Gap 4.8 mmol/L (3-11); BUN 15 mg/dL (7-18); Bilirubin, Total 0.3 mg/dL (0.2-1.0); CO2 31.2 mmol/L (21.0-32.0); CREATININE 0.9 mg/dL (0.70-1.30); Calcium 9.7 mg/dL (8.5-10.1); Chloride 97 mmol/L (98-107); Glucose 114 mg/dL (74-106); Potassium 4.2 mmol/L (3.5-5.1); Sodium 133 mmol/L (136-145); Total Protein 7.8 g/dL (6.4-8.2)
[2020-06-27 10:07] LABS: Bilirubin Negative (Negative); Blood Small (Negative); Clarity Clear (Clear); Glucose Negative (Negative); Ketones Trace mg/dL (Negative); Leukocyte Esterase Negative (Negative); Nitrite Negative (Negative); Urobilinogen 0.2 EU/dL (Up TO 0.2)
[2020-06-27 10:17] LABS: Bacteria Negative HPF (Negative); C & S Indicated? No; Epithelial Cells Rare HPF (Negative); WBC Negative HPF (0-5)
== END 2020-06-27 03:35 | disposition home or self-care (01) ==
PROVIDERS: PCP Family Medicine; Visit Provider Internal Medicine
DX: C71.9 Malignant neoplasm of brain, unspecified (principal)
CPT/HCPCS: 36415; 80053; 81003; 81015; 85025

== ENCOUNTER 2020-07-11 01:56 | Outpatient (CLI) | payer MEDICAID, SELFPAY ==
--- NOTE | 2020-07-11 | DI.MRI_ITS ---
Exam(s) MR BRAIN WO/W EXAM: MR BRAIN WO/W CLINICAL HISTORY: F/U GLIOBLASTOMA,C71.9,ASSESS TREATMENT RESPONSE TECHNIQUE: Multiplanar multisequence MRI of the brain was performed. Both noninfused and contrast i nfused sequences were performed. IV Contrast injected was cc Dotarem. COMPARISON: MR MR BRAIN WO/W from 03/21/2020 MR MR BRAIN WO/W from 05/16/2020 MR MR BRAIN WO/W from 05/16/2020 FINDINGS: CEREBRAL PARENCHYMA: There is continued stability in the appearance of the postoperative site in the right temporal lobe w ith no new areas of abnormal intra nor extra-axial signal abnormality and there are no new enhancing lesions nor new significant abnormal meningeal enhancement. No new mass effect. No evidence of hemo rrhage nor new mass effect. Ventricular size is unchanged. No shift. PITUITARY GLAND: No mass nor parasellar abnormality. No obvious abnormality in the cavernous sinuses. FLOW VOIDS: The expected flow void are noted. No evidence of obvious aneurysm nor obvious vascular ma lformation. PARANASAL SINUSES: Previously described mucosal thickening in the right sphenoid sinus is again noted . Also increased signal in the right mastoid air cells is unchanged. ORBITS: No obvious abnormal findings. IMPRESSION: 1. Continued stable appearance of the right temporal operative site. No new significant intra nor ex tra-axial findings. 2. No new abnormal enhancing intracranial findings. Mucosal thickening in the right sphenoid sinus is again noted. DATA REPOSITORY:
[2020-07-11] MEDS: Normal Saline Flush 10 ML SYR IVP (08:39)
[2020-07-11] MEDS: Gadoterate meglumine 20 ML VIAL 16 ML IVP (08:40)
== END 2020-07-11 02:16 ==
PROVIDERS: PCP Family Medicine; Visit Provider Internal Medicine
DX: C71.9 Malignant neoplasm of brain, unspecified (principal); Z98.890 Other specified postprocedural states; J32.3 Chronic sphenoidal sinusitis
CPT/HCPCS: 70553; 80053; 81003; 85025

== ENCOUNTER 2020-07-18 02:50 | Outpatient (CLI) | payer MEDICAID, SELFPAY ==
[2020-07-18 09:10] LABS: Abs Immature Grans 0.02 10^3/uL (0.0-0.06); Absolute Basophil Count 0.06 10^3/uL (0.0-0.2); Absolute Eosinophil Count 0.07 10^3/uL (0.0-0.7); Absolute Lymphocyte Count 1.22 10^3/uL (1.2-3.4); Absolute Monocyte Count 0.62 10^3/uL (0.1-0.8); Absolute Neutrophil Count 4.42 10^3/uL (1.2-6.7); Basophils % 0.9; Eosinophils % 1.1; HCT 43.2 % (40.0-50.0); HGB 15.1 g/dL (13.5-17.5); Immature Grans % 0.3; MCH 32.2 pg (27.0-33.0); MCV 92.1 fL (80-95); MPV 8.2 fL (8.0-11.0); Monocytes % 9.7; Nucleated RBC 0 %; Platelet Count 140 10^3/uL (130-400); RBC 4.69 10^6/uL (4.36-5.78); RDW 14.5 % (11.8-14.1); RDW-SD 49.1 fL; WBC 6.41 10^3/uL (4.4-10.8)
[2020-07-18 09:11] LABS: Bilirubin Negative (Negative); Blood Trace-intact (Negative); Clarity Clear (Clear); Glucose Negative (Negative); Ketones Negative (Negative); Leukocyte Esterase Negative (Negative); Nitrite Negative (Negative); Urobilinogen 0.2 EU/dL (Up TO 0.2); pH 6.5 (5-8)
[2020-07-18 09:18] LABS: Bacteria Negative HPF (Negative); C & S Indicated? No; Casts 0-2 Hyaline LPF (Negative); Crystals Negative HPF (Negative); Epithelial Cells Rare HPF (Negative); Mucus Negative (Negative); RBC 0-2 HPF (0-2); WBC Negative HPF (0-5)
[2020-07-18 09:24] LABS: ALT 20 U/L (16-63); AST 14 U/L (15-37); Albumin 3.7 g/dL (3.4-5.0); Alkaline Phosphatase 61 U/L (46-116); Anion Gap 5.7 mmol/L (3-11); BUN 13 mg/dL (7-18); Bilirubin, Total 0.3 mg/dL (0.2-1.0); CO2 31.3 mmol/L (21.0-32.0); Calcium 9.2 mg/dL (8.5-10.1); Chloride 97 mmol/L (98-107); Glucose 110 mg/dL (74-106); Potassium 4.3 mmol/L (3.5-5.1); Sodium 134 mmol/L (136-145); Total Protein 7.8 g/dL (6.4-8.2)
== END 2020-07-18 02:51 | disposition home or self-care (01) ==
LOC: LBO 02:50
PROVIDERS: PCP Family Medicine; Visit Provider Internal Medicine
DX: C71.9 Malignant neoplasm of brain, unspecified (principal); R82.998 Other abnormal findings in urine
CPT/HCPCS: 80053; 81003; 81015; 85025

== ENCOUNTER 2020-08-08 02:39 | Outpatient (CLI) | payer MEDICAID, SELFPAY ==
[2020-08-08 12:09] LABS: Abs Immature Grans 0.03 10^3/uL (0.0-0.06); Absolute Basophil Count 0.05 10^3/uL (0.0-0.2); Absolute Lymphocyte Count 1.37 10^3/uL (1.2-3.4); Absolute Neutrophil Count 4.85 10^3/uL (1.2-6.7); Basophils % 0.7; Eosinophils % 1.4; HCT 40.8 % (40.0-50.0); HGB 14.1 g/dL (13.5-17.5); Immature Grans % 0.4; Lymphocytes % 19.6; MCHC 34.6 % (32.0-36.0); MCV 92.5 fL (80-95); MPV 8.2 fL (8.0-11.0); Monocytes % 8.6; Neutrophils % 69.3; Nucleated RBC 0 %; Platelet Count 137 10^3/uL (130-400); RBC 4.41 10^6/uL (4.36-5.78); RDW 14.7 % (11.8-14.1); RDW-SD 50.4 fL
[2020-08-08 12:10] LABS: Bilirubin Negative (Negative); Blood Small (Negative); Clarity Clear (Clear); Glucose Negative (Negative); Ketones Negative (Negative); Leukocyte Esterase Negative (Negative); Nitrite Negative (Negative); Urobilinogen 0.2 EU/dL (Up TO 0.2)
[2020-08-08 12:18] LABS: Bacteria Negative HPF (Negative); C & S Indicated? No; Casts Negative LPF (Negative); Crystals Negative HPF (Negative); Epithelial Cells Rare HPF (Negative); Mucus Trace (Negative); RBC 0-2 HPF (0-2); WBC Negative HPF (0-5)
[2020-08-08 12:29] LABS: ALT 19 U/L (16-63); AST 16 U/L (15-37); Albumin 3.5 g/dL (3.4-5.0); Alkaline Phosphatase 55 U/L (46-116); Anion Gap 8.3 mmol/L (3-11); BUN 15 mg/dL (7-18); Bilirubin, Total 0.3 mg/dL (0.2-1.0); CO2 27.7 mmol/L (21.0-32.0); CREATININE 0.9 mg/dL (0.70-1.30); Calcium 8.9 mg/dL (8.5-10.1); Chloride 100 mmol/L (98-107); Glucose 127 mg/dL (74-106); Potassium 3.9 mmol/L (3.5-5.1); Sodium 136 mmol/L (136-145); Total Protein 7.2 g/dL (6.4-8.2)
== END 2020-08-08 02:40 | disposition home or self-care (01) ==
LOC: LBO 02:40
PROVIDERS: PCP Family Medicine; Visit Provider Internal Medicine
DX: C71.9 Malignant neoplasm of brain, unspecified (principal); R82.998 Other abnormal findings in urine
CPT/HCPCS: 36415; 80053; 81003; 81015; 85025

== ENCOUNTER 2020-08-29 03:47 | Outpatient (CLI) | payer MEDICAID, SELFPAY ==
[2020-08-29 12:10] LABS: Bilirubin Negative (Negative); Blood Trace-lysed (Negative); Clarity Clear (Clear); Glucose Negative (Negative); Ketones Negative (Negative); Leukocyte Esterase Negative (Negative); Nitrite Negative (Negative); Specific Gravity 1.025 (1.005-1.025); Urobilinogen 0.2 EU/dL (Up TO 0.2)
[2020-08-29 12:12] LABS: Abs Immature Grans 0.02 10^3/uL (0.0-0.06); Absolute Basophil Count 0.03 10^3/uL (0.0-0.2); Absolute Eosinophil Count 0.09 10^3/uL (0.0-0.7); Absolute Lymphocyte Count 1.14 10^3/uL (1.2-3.4); Absolute Monocyte Count 0.53 10^3/uL (0.1-0.8); Absolute Neutrophil Count 4.25 10^3/uL (1.2-6.7); Basophils % 0.5; Eosinophils % 1.5; HGB 14.7 g/dL (13.5-17.5); Immature Grans % 0.3; Lymphocytes % 18.8; MCH 32.2 pg (27.0-33.0); MCHC 34.2 % (32.0-36.0); MCV 94.1 fL (80-95); MPV 8.5 fL (8.0-11.0); Monocytes % 8.7; Neutrophils % 70.2; Nucleated RBC 0 %; Platelet Count 146 10^3/uL (130-400); RBC 4.57 10^6/uL (4.36-5.78); RDW 14.7 % (11.8-14.1); RDW-SD 51.3 fL; WBC 6.06 10^3/uL (4.4-10.8)
[2020-08-29 12:17] LABS: Bacteria Rare HPF (Negative); C & S Indicated? No; Casts Negative LPF (Negative); Crystals Negative HPF (Negative); Epithelial Cells Rare HPF (Negative); Mucus Trace (Negative); Other Cells Negative (Negative); RBC 0-2 HPF (0-2); WBC Negative HPF (0-5)
[2020-08-29 12:20] LABS: ALT 18 U/L (16-63); AST 13 U/L (15-37); Albumin 3.6 g/dL (3.4-5.0); Alkaline Phosphatase 58 U/L (46-116); Anion Gap 6.8 mmol/L (3-11); BUN 14 mg/dL (7-18); Bilirubin, Total 0.3 mg/dL (0.2-1.0); CO2 29.2 mmol/L (21.0-32.0); CREATININE 0.9 mg/dL (0.70-1.30); Calcium 8.9 mg/dL (8.5-10.1); Chloride 99 mmol/L (98-107); Glucose 129 mg/dL (74-106); Potassium 4.1 mmol/L (3.5-5.1); Sodium 135 mmol/L (136-145); Total Protein 7.5 g/dL (6.4-8.2)
== END 2020-08-29 03:48 | disposition home or self-care (01) ==
LOC: LBO 03:48
PROVIDERS: PCP Family Medicine; Visit Provider Internal Medicine
DX: C71.9 Malignant neoplasm of brain, unspecified (principal); R82.998 Other abnormal findings in urine
CPT/HCPCS: 36415; 80053; 81003; 81015; 85025

== ENCOUNTER 2020-09-19 16:35 | Outpatient (CLI) | payer MEDICAID, SELFPAY ==
[2020-09-19 12:09] LABS: Bilirubin Negative (Negative); Blood Trace-lysed (Negative); Clarity Clear (Clear); Glucose Negative (Negative); Ketones Trace mg/dL (Negative); Leukocyte Esterase Negative (Negative); Nitrite Negative (Negative); Urobilinogen 0.2 EU/dL (Up TO 0.2); pH 5.5 (5-8)
[2020-09-19 12:12] LABS: Abs Immature Grans 0.02 10^3/uL (0.0-0.06); Absolute Basophil Count 0.05 10^3/uL (0.0-0.2); Absolute Lymphocyte Count 1.48 10^3/uL (1.2-3.4); Absolute Monocyte Count 0.61 10^3/uL (0.1-0.8); Absolute Neutrophil Count 4.38 10^3/uL (1.2-6.7); Basophils % 0.8; Eosinophils % 1.5; HCT 40.5 % (40.0-50.0); HGB 14.1 g/dL (13.5-17.5); Immature Grans % 0.3; Lymphocytes % 22.3; MCH 32.2 pg (27.0-33.0); MCHC 34.8 % (32.0-36.0); MCV 92.5 fL (80-95); MPV 8.4 fL (8.0-11.0); Monocytes % 9.2; Neutrophils % 65.9; Nucleated RBC 0 %; Platelet Count 171 10^3/uL (130-400); RBC 4.38 10^6/uL (4.36-5.78); RDW 14.5 % (11.8-14.1); RDW-SD 49.2 fL; WBC 6.64 10^3/uL (4.4-10.8)
[2020-09-19 12:18] LABS: Bacteria Rare HPF (Negative); C & S Indicated? No; Casts Negative LPF (Negative); Crystals Negative HPF (Negative); Epithelial Cells Rare HPF (Negative); Mucus Trace (Negative); Other Cells Negative (Negative); RBC 0-2 HPF (0-2); WBC Negative HPF (0-5)
[2020-09-19 12:24] LABS: ALT 20 U/L (16-63); AST 13 U/L (15-37); Albumin 3.5 g/dL (3.4-5.0); Alkaline Phosphatase 56 U/L (46-116); BUN 13 mg/dL (7-18); Bilirubin, Total 0.3 mg/dL (0.2-1.0); CREATININE 0.9 mg/dL (0.70-1.30); Calcium 8.7 mg/dL (8.5-10.1); Chloride 99 mmol/L (98-107); Glucose 108 mg/dL (74-106); Potassium 4.3 mmol/L (3.5-5.1); Sodium 134 mmol/L (136-145); Total Protein 7.1 g/dL (6.4-8.2)
== END 2020-09-19 16:36 | disposition home or self-care (01) ==
LOC: LBO 16:36
PROVIDERS: PCP Family Medicine; Visit Provider Nurse Practitioner Adult Health
DX: C71.9 Malignant neoplasm of brain, unspecified (principal)
CPT/HCPCS: 36415; 80053; 81003; 81015; 85025

== ENCOUNTER 2020-10-10 02:13 | Outpatient (CLI) | payer MEDICAID, SELFPAY ==
--- NOTE | 2020-10-10 | DI.MRI_ITS ---
Exam(s) MR BRAIN WO/W EXAM: MR BRAIN WO/W CLINICAL HISTORY: F/U GLIOBLASTOMA,ON AVASTIN,C71.9. TECHNIQUE: Multiplanar multisequence MRI of the brain was performed. CONTRAST MATERIAL: IV Contrast: 16 ML of Dotarem contrast administered. COMPARISON: MR MR BRAIN WO/W from 07/11/2020 FINDINGS: Stable area encephalomalacia in the right temporal lobe with adjacent gliosis. No evidence of recurr ence mass or enhancement. No new masses. Stable left temporal craniotomy site. No acute infarct or hemorrhage. Vascular flow voids are intact. The orbits are unremarkable. Stable right sphenoid si nus disease. Stable appearance of ventricles. Small amount of fluid in the right mastoid air cells, unchanged.. IMPRESSION: Stable appearance of postoperative changes in the right temporal lobe. No new abnormalities. DATA REPOSITORY:
[2020-10-10] MEDS: Gadoterate meglumine 20 ML VIAL 16 ML IVP (11:20)
[2020-10-10] MEDS: Normal Saline Flush 10 ML SYR IVP (11:20)
== END 2020-10-10 02:33 ==
PROVIDERS: PCP Family Medicine; Visit Provider Internal Medicine
DX: C71.9 Malignant neoplasm of brain, unspecified (principal)
CPT/HCPCS: 70553

== ENCOUNTER 2020-10-10 03:35 | Outpatient (CLI) | payer MEDICAID, SELFPAY ==
[2020-10-10 10:12] LABS: Abs Immature Grans 0.02 10^3/uL (0.0-0.06); Absolute Basophil Count 0.07 10^3/uL (0.0-0.2); Absolute Eosinophil Count 0.09 10^3/uL (0.0-0.7); Absolute Lymphocyte Count 1.16 10^3/uL (1.2-3.4); Absolute Monocyte Count 0.52 10^3/uL (0.1-0.8); Absolute Neutrophil Count 4.38 10^3/uL (1.2-6.7); Basophils % 1.1; Eosinophils % 1.4; HCT 43.5 % (40.0-50.0); HGB 14.8 g/dL (13.5-17.5); Immature Grans % 0.3; Lymphocytes % 18.6; MCH 31.8 pg (27.0-33.0); MCV 93.5 fL (80-95); MPV 8.3 fL (8.0-11.0); Monocytes % 8.3; Neutrophils % 70.3; Nucleated RBC 0 %; Platelet Count 134 10^3/uL (130-400); RBC 4.65 10^6/uL (4.36-5.78); RDW 14.7 % (11.8-14.1); WBC 6.24 10^3/uL (4.4-10.8)
[2020-10-10 10:14] LABS: Bilirubin Negative (Negative); Blood Trace-intact (Negative); Clarity Clear (Clear); Glucose Negative (Negative); Ketones Negative (Negative); Leukocyte Esterase Negative (Negative); Nitrite Negative (Negative); Specific Gravity 1.015 (1.005-1.025); Urobilinogen 0.2 EU/dL (Up TO 0.2); pH 6.5 (5-8)
[2020-10-10 10:24] LABS: ALT 19 U/L (16-63); AST 16 U/L (15-37); Albumin 3.7 g/dL (3.4-5.0); Alkaline Phosphatase 57 U/L (46-116); Anion Gap 3.7 mmol/L (3-11); BUN 9 mg/dL (7-18); Bilirubin, Total 0.3 mg/dL (0.2-1.0); CO2 31.3 mmol/L (21.0-32.0); CREATININE 0.8 mg/dL (0.70-1.30); Calcium 9.4 mg/dL (8.5-10.1); Chloride 97 mmol/L (98-107); Glucose 137 mg/dL (74-106); Potassium 4.4 mmol/L (3.5-5.1); Sodium 132 mmol/L (136-145); Total Protein 7.5 g/dL (6.4-8.2)
[2020-10-10 10:30] LABS: Bacteria Negative HPF (Negative); C & S Indicated? No; Casts Negative LPF (Negative); Crystals Negative HPF (Negative); Epithelial Cells Rare HPF (Negative); Mucus Negative (Negative); RBC 0-2 HPF (0-2); WBC Negative HPF (0-5)
== END 2020-10-10 03:36 | disposition home or self-care (01) ==
LOC: LBO 03:35
PROVIDERS: PCP Family Medicine; Visit Provider Internal Medicine
DX: C71.9 Malignant neoplasm of brain, unspecified (principal)
CPT/HCPCS: 36415; 80053; 81003; 81015; 85025

== ENCOUNTER 2020-10-31 02:57 | Outpatient (CLI) | payer MEDICAID, SELFPAY ==
[2020-10-31 07:21] LABS: Abs Immature Grans 0.03 10^3/uL (0.0-0.06); Absolute Basophil Count 0.05 10^3/uL (0.0-0.2); Absolute Eosinophil Count 0.09 10^3/uL (0.0-0.7); Absolute Lymphocyte Count 1.31 10^3/uL (1.2-3.4); Absolute Monocyte Count 0.56 10^3/uL (0.1-0.8); Absolute Neutrophil Count 4.39 10^3/uL (1.2-6.7); Basophils % 0.8; Eosinophils % 1.4; HCT 46.8 % (40.0-50.0); HGB 15.5 g/dL (13.5-17.5); Immature Grans % 0.5; Lymphocytes % 20.4; MCH 31.3 pg (27.0-33.0); MCHC 33.1 % (32.0-36.0); MCV 94.5 fL (80-95); MPV 8.2 fL (8.0-11.0); Monocytes % 8.7; Neutrophils % 68.2; Nucleated RBC 0 %; Platelet Count 143 10^3/uL (130-400); RBC 4.95 10^6/uL (4.36-5.78); RDW 14.8 % (11.8-14.1); WBC 6.43 10^3/uL (4.4-10.8)
[2020-10-31 07:22] LABS: Bilirubin Negative (Negative); Blood Trace-lysed (Negative); Clarity Clear (Clear); Glucose Negative (Negative); Ketones Negative (Negative); Leukocyte Esterase Negative (Negative); Nitrite Negative (Negative); Urobilinogen 0.2 EU/dL (Up TO 0.2)
[2020-10-31 07:32] LABS: Bacteria Rare HPF (Negative); C & S Indicated? No; Casts Negative LPF (Negative); Crystals Negative HPF (Negative); Epithelial Cells Rare HPF (Negative); Mucus Trace (Negative); Other Cells Negative (Negative); RBC 0-2 HPF (0-2); WBC 0-2 HPF (0-5)
[2020-10-31 08:01] LABS: ALT 19 U/L (16-63); AST 13 U/L (15-37); Albumin 3.8 g/dL (3.4-5.0); Alkaline Phosphatase 59 U/L (46-116); Anion Gap 5.9 mmol/L (3-11); BUN 9 mg/dL (7-18); Bilirubin, Total 0.4 mg/dL (0.2-1.0); CO2 31.1 mmol/L (21.0-32.0); CREATININE 0.9 mg/dL (0.70-1.30); Calcium 9.8 mg/dL (8.5-10.1); Chloride 99 mmol/L (98-107); Glucose 99 mg/dL (74-106); Potassium 3.8 mmol/L (3.5-5.1); Sodium 136 mmol/L (136-145); Total Protein 8.1 g/dL (6.4-8.2)
== END 2020-10-31 02:58 | disposition home or self-care (01) ==
LOC: LBO 02:57
PROVIDERS: PCP Family Medicine; Visit Provider Internal Medicine
DX: C71.9 Malignant neoplasm of brain, unspecified (principal)
CPT/HCPCS: 80053; 81003; 81015; 85025

== ENCOUNTER 2020-11-21 00:43 | Outpatient (CLI) | payer MEDICAID, SELFPAY ==
[2020-11-21 07:28] LABS: Abs Immature Grans 0.02 10^3/uL (0.0-0.06); Absolute Basophil Count 0.06 10^3/uL (0.0-0.2); Absolute Eosinophil Count 0.13 10^3/uL (0.0-0.7); Absolute Neutrophil Count 4.34 10^3/uL (1.2-6.7); Basophils % 0.9; HCT 43.5 % (40.0-50.0); HGB 14.9 g/dL (13.5-17.5); Immature Grans % 0.3; Lymphocytes % 20.2; MCHC 34.3 % (32.0-36.0); MCV 93.5 fL (80-95); MPV 8.2 fL (8.0-11.0); Monocytes % 9.3; Neutrophils % 67.3; Nucleated RBC 0 %; Platelet Count 146 10^3/uL (130-400); RBC 4.65 10^6/uL (4.36-5.78); RDW 14.5 % (11.8-14.1); RDW-SD 49.7 fL; WBC 6.45 10^3/uL (4.4-10.8)
[2020-11-21 07:32] LABS: Bilirubin Negative (Negative); Blood Trace-intact (Negative); Clarity Clear (Clear); Glucose Negative (Negative); Ketones Negative (Negative); Leukocyte Esterase Negative (Negative); Nitrite Negative (Negative); Specific Gravity 1.015 (1.005-1.025); Urobilinogen 0.2 EU/dL (Up TO 0.2)
[2020-11-21 07:42] LABS: RBC 0-2 HPF (0-2); WBC Negative HPF (0-5)
[2020-11-21 07:43] LABS: Bacteria Negative HPF (Negative); C & S Indicated? No; Casts 0-2 Hyaline LPF (Negative); Crystals Negative HPF (Negative); Epithelial Cells Rare HPF (Negative); Mucus Negative (Negative)
[2020-11-21 07:44] LABS: ALT 20 U/L (16-63); AST 18 U/L (15-37); Albumin 3.8 g/dL (3.4-5.0); Alkaline Phosphatase 61 U/L (46-116); Anion Gap 2.2 mmol/L (3-11); BUN 10 mg/dL (7-18); Bilirubin, Total 0.3 mg/dL (0.2-1.0); CO2 33.8 mmol/L (21.0-32.0); CREATININE 0.9 mg/dL (0.70-1.30); Calcium 9.4 mg/dL (8.5-10.1); Chloride 96 mmol/L (98-107); Glucose 123 mg/dL (74-106); Potassium 4.3 mmol/L (3.5-5.1); Sodium 132 mmol/L (136-145); Total Protein 7.8 g/dL (6.4-8.2)
== END 2020-11-21 00:44 | disposition home or self-care (01) ==
LOC: LBO 00:43
PROVIDERS: PCP Family Medicine; Visit Provider Internal Medicine
DX: C71.9 Malignant neoplasm of brain, unspecified (principal)
CPT/HCPCS: 36415; 80053; 81003; 81015; 85025

== ENCOUNTER 2020-12-12 04:11 | Outpatient (CLI) | payer MEDICAID, SELFPAY ==
[2020-12-12 07:25] LABS: Bilirubin Negative (Negative); Blood Trace-intact (Negative); Clarity Clear (Clear); Glucose Negative (Negative); Ketones Negative (Negative); Leukocyte Esterase Negative (Negative); Nitrite Negative (Negative); Specific Gravity 1.015 (1.005-1.025); Urobilinogen 0.2 EU/dL (Up TO 0.2)
[2020-12-12 07:27] LABS: Abs Immature Grans 0.02 10^3/uL (0.0-0.06); Absolute Basophil Count 0.04 10^3/uL (0.0-0.2); Absolute Eosinophil Count 0.11 10^3/uL (0.0-0.7); Absolute Lymphocyte Count 1.26 10^3/uL (1.2-3.4); Absolute Monocyte Count 0.56 10^3/uL (0.1-0.8); Absolute Neutrophil Count 4.89 10^3/uL (1.2-6.7); Basophils % 0.6; Eosinophils % 1.6; HCT 43.3 % (40.0-50.0); HGB 14.6 g/dL (13.5-17.5); Immature Grans % 0.3; Lymphocytes % 18.3; MCH 31.6 pg (27.0-33.0); MCHC 33.7 % (32.0-36.0); MCV 93.7 fL (80-95); MPV 8.3 fL (8.0-11.0); Monocytes % 8.1; Neutrophils % 71.1; Nucleated RBC 0 %; Platelet Count 130 10^3/uL (130-400); RBC 4.62 10^6/uL (4.36-5.78); RDW 14.5 % (11.8-14.1); WBC 6.88 10^3/uL (4.4-10.8)
[2020-12-12 07:41] LABS: Bacteria Rare HPF (Negative); C & S Indicated? No; Casts Negative LPF (Negative); Crystals Negative HPF (Negative); Epithelial Cells Negative HPF (Negative); Mucus Moderate (Negative); WBC 0-2 HPF (0-5)
[2020-12-12 07:45] LABS: ALT 16 U/L (16-63); AST 14 U/L (15-37); Albumin 3.5 g/dL (3.4-5.0); Alkaline Phosphatase 54 U/L (46-116); Anion Gap 5.1 mmol/L (3-11); BUN 12 mg/dL (7-18); Bilirubin, Total 0.3 mg/dL (0.2-1.0); CO2 28.9 mmol/L (21.0-32.0); CREATININE 0.9 mg/dL (0.70-1.30); Calcium 8.8 mg/dL (8.5-10.1); Chloride 100 mmol/L (98-107); Glucose 120 mg/dL (74-106); Potassium 4.1 mmol/L (3.5-5.1); Sodium 134 mmol/L (136-145); Total Protein 7.3 g/dL (6.4-8.2)
== END 2020-12-12 04:12 | disposition home or self-care (01) ==
LOC: LBO 04:11
PROVIDERS: PCP Family Medicine; Visit Provider Internal Medicine
DX: C71.9 Malignant neoplasm of brain, unspecified (principal)
CPT/HCPCS: 36415; 80053; 81003; 81015; 81050; 84155; 85025

== ENCOUNTER 2020-12-12 08:22 | Outpatient (REF) | payer MEDICAID, SELFPAY ==
[2020-12-13 10:08] LABS: Total Volume 1100 ml
== END 2020-12-12 08:23 | disposition home or self-care (01) ==
LOC: LBN 08:22
PROVIDERS: PCP Family Medicine; Visit Provider Nurse Practitioner Adult Health
DX: C71.9 Malignant neoplasm of brain, unspecified (principal); E87.1 Hypo-osmolality and hyponatremia
CPT/HCPCS: 81050; 84155

== ENCOUNTER 2021-01-02 01:07 | Outpatient (CLI) | payer MEDICAID, SELFPAY ==
[2021-01-02 07:27] LABS: Bilirubin Negative (Negative); Blood Trace-intact (Negative); Clarity Clear (Clear); Glucose Negative (Negative); Ketones Negative (Negative); Leukocyte Esterase Negative (Negative); Nitrite Negative (Negative); Specific Gravity 1.025 (1.005-1.025); Urobilinogen 0.2 EU/dL (Up TO 0.2)
[2021-01-02 07:36] LABS: Bacteria Negative HPF (Negative); Crystals Negative HPF (Negative); Epithelial Cells Negative HPF (Negative); Mucus Trace (Negative); RBC 0-2 HPF (0-2); WBC 0-2 HPF (0-5)
[2021-01-02 07:37] LABS: C & S Indicated? No; Casts 0-2 Hyaline LPF (Negative)
[2021-01-02 08:07] LABS: Abs Immature Grans 0.02 10^3/uL (0.0-0.06); Absolute Basophil Count 0.05 10^3/uL (0.0-0.2); Absolute Eosinophil Count 0.08 10^3/uL (0.0-0.7); Absolute Lymphocyte Count 1.21 10^3/uL (1.2-3.4); Absolute Monocyte Count 0.49 10^3/uL (0.1-0.8); Absolute Neutrophil Count 3.94 10^3/uL (1.2-6.7); Basophils % 0.9; Eosinophils % 1.4; HCT 42.7 % (40.0-50.0); HGB 14.4 g/dL (13.5-17.5); Immature Grans % 0.3; Lymphocytes % 20.9; MCH 31.4 pg (27.0-33.0); MCHC 33.7 % (32.0-36.0); MPV 8.3 fL (8.0-11.0); Monocytes % 8.5; Nucleated RBC 0 %; Platelet Count 137 10^3/uL (130-400); RBC 4.59 10^6/uL (4.36-5.78); RDW 14.8 % (11.8-14.1); RDW-SD 51.1 fL; WBC 5.79 10^3/uL (4.4-10.8)
[2021-01-02] MEDS: Gadoterate meglumine 20 ML VIAL 13 ML IVP (08:13)
[2021-01-02 08:21] LABS: ALT 19 U/L (16-63); AST 19 U/L (15-37); Albumin 3.6 g/dL (3.4-5.0); Alkaline Phosphatase 59 U/L (46-116); Anion Gap 4.1 mmol/L (3-11); BUN 11 mg/dL (7-18); Bilirubin, Total 0.3 mg/dL (0.2-1.0); CO2 31.9 mmol/L (21.0-32.0); CREATININE 0.8 mg/dL (0.70-1.30); Calcium 8.7 mg/dL (8.5-10.1); Chloride 98 mmol/L (98-107); Glucose 95 mg/dL (74-106); Potassium 3.9 mmol/L (3.5-5.1); Sodium 134 mmol/L (136-145); Total Protein 7.3 g/dL (6.4-8.2)
--- NOTE | 2021-01-02 08:35 | DI.MRI_ITS ---
Exam(s) MR BRAIN WO/W EXAM: MR BRAIN WO/W CLINICAL HISTORY: GLIOBLASTOMA C71.9 TECHNIQUE: Multiplanar multisequence MRI of the brain was performed. Both noninfused and contrast i nfused sequences were performed. IV Contrast injected was 13 cc Dotarem. COMPARISON: MR MR BRAIN WO/W from 07/11/2020 MR MR BRAIN WO/W from 07/11/2020 MR MR BRAIN WO/W from 10/10/2020 MR MR BRAIN WO/W from 10/10/2020 FINDINGS: CEREBRAL PARENCHYMA: There is continued stable appearance of the right sided craniotomy site and stab le area of subjacent encephalomalacia. No new areas of abnormal signal nor abnormal new enhancement to suggest recurrence or new masses. No evidence of hemorrhage. PITUITARY GLAND: No mass nor parasellar abnormality. No obvious abnormality in the cavernous sinuses. FLOW VOIDS: The expected flow void are noted. No evidence of obvious aneurysm nor obvious vascular ma lformation. PARANASAL SINUSES: Mucosal thickening in the right sphenoid sinus is again noted. ORBITS: No obvious no abnormal findings. IMPRESSION: 1. Continued stable appearance. No new significant intracranial findings. DATA REPOSITORY:
== END 2021-01-02 01:27 ==
PROVIDERS: Nurse Practitioner Adult Health; PCP Family Medicine; Visit Provider Internal Medicine
DX: C71.9 Malignant neoplasm of brain, unspecified (principal)
CPT/HCPCS: 70553; 80053; 81003; 81015; 85025

== ENCOUNTER 2021-01-23 02:26 | Outpatient (CLI) | payer MEDICAID, SELFPAY ==
[2021-01-23 07:42] LABS: Abs Immature Grans 0.04 10^3/uL (0.0-0.06); Absolute Basophil Count 0.04 10^3/uL (0.0-0.2); Absolute Eosinophil Count 0.11 10^3/uL (0.0-0.7); Absolute Lymphocyte Count 1.04 10^3/uL (1.2-3.4); Absolute Monocyte Count 0.59 10^3/uL (0.1-0.8); Absolute Neutrophil Count 4.39 10^3/uL (1.2-6.7); Basophils % 0.6; Eosinophils % 1.8; HCT 42.6 % (40.0-50.0); HGB 14.6 g/dL (13.5-17.5); Immature Grans % 0.6; Lymphocytes % 16.7; MCH 31.7 pg (27.0-33.0); MCHC 34.3 % (32.0-36.0); MCV 92.4 fL (80-95); MPV 8.5 fL (8.0-11.0); Monocytes % 9.5; Neutrophils % 70.8; Nucleated RBC 0 %; Platelet Count 157 10^3/uL (130-400); RBC 4.61 10^6/uL (4.36-5.78); RDW 14.5 % (11.8-14.1); RDW-SD 49.2 fL; WBC 6.21 10^3/uL (4.4-10.8)
[2021-01-23 07:49] LABS: Bilirubin Negative (Negative); Blood Trace-intact (Negative); Clarity Clear (Clear); Glucose Negative (Negative); Ketones Trace mg/dL (Negative); Leukocyte Esterase Negative (Negative); Nitrite Negative (Negative); Specific Gravity 1.025 (1.005-1.025); Urobilinogen 0.2 EU/dL (Up TO 0.2); pH 5.5 (5-8)
[2021-01-23 07:58] LABS: RBC 0-2 HPF (0-2); WBC Negative HPF (0-5)
[2021-01-23 07:59] LABS: Bacteria Negative HPF (Negative); C & S Indicated? No; Casts Negative LPF (Negative); Crystals Negative HPF (Negative); Epithelial Cells Rare HPF (Negative); Mucus Trace (Negative)
[2021-01-23 08:01] LABS: ALT 17 U/L (16-63); AST 15 U/L (15-37); Albumin 3.4 g/dL (3.4-5.0); Alkaline Phosphatase 56 U/L (46-116); Anion Gap 6.9 mmol/L (3-11); BUN 14 mg/dL (7-18); Bilirubin, Total 0.4 mg/dL (0.2-1.0); CO2 30.1 mmol/L (21.0-32.0); CREATININE 0.9 mg/dL (0.70-1.30); Calcium 9.3 mg/dL (8.5-10.1); Chloride 95 mmol/L (98-107); Glucose 72 mg/dL (74-106); Potassium 4.2 mmol/L (3.5-5.1); Sodium 132 mmol/L (136-145); Total Protein 7.4 g/dL (6.4-8.2)
== END 2021-01-23 02:27 | disposition home or self-care (01) ==
LOC: LBO 02:26
PROVIDERS: PCP Family Medicine; Visit Provider Internal Medicine
DX: C71.9 Malignant neoplasm of brain, unspecified (principal)
CPT/HCPCS: 36415; 80053; 81003; 81015; 85025

== ENCOUNTER 2021-02-13 01:18 | Outpatient (CLI) | payer MEDICAID, SELFPAY ==
[2021-02-13 11:17] LABS: Abs Immature Grans 0.02 10^3/uL (0.0-0.06); Absolute Basophil Count 0.05 10^3/uL (0.0-0.2); Absolute Eosinophil Count 0.08 10^3/uL (0.0-0.7); Absolute Lymphocyte Count 1.04 10^3/uL (1.2-3.4); Absolute Monocyte Count 0.46 10^3/uL (0.1-0.8); Absolute Neutrophil Count 5.61 10^3/uL (1.2-6.7); Basophils % 0.7; Eosinophils % 1.1; HCT 44.5 % (40.0-50.0); HGB 14.9 g/dL (13.5-17.5); Immature Grans % 0.3; Lymphocytes % 14.3; MCHC 33.5 % (32.0-36.0); MCV 92.5 fL (80-95); MPV 8.2 fL (8.0-11.0); Monocytes % 6.3; Neutrophils % 77.3; Nucleated RBC 0 %; Platelet Count 149 10^3/uL (130-400); RBC 4.81 10^6/uL (4.36-5.78); RDW 14.8 % (11.8-14.1); WBC 7.26 10^3/uL (4.4-10.8)
[2021-02-13 11:18] LABS: Bilirubin Negative (Negative); Blood Trace-intact (Negative); Clarity Clear (Clear); Glucose Negative (Negative); Ketones Negative (Negative); Leukocyte Esterase Negative (Negative); Nitrite Negative (Negative); Urobilinogen 0.2 EU/dL (Up TO 0.2)
[2021-02-13 11:25] LABS: Bacteria Negative HPF (Negative); C & S Indicated? No; Casts 0-2 Hyaline LPF (Negative); Crystals Negative HPF (Negative); Epithelial Cells Rare HPF (Negative); Mucus Trace (Negative); RBC 0-2 HPF (0-2); WBC Negative HPF (0-5)
[2021-02-13 11:30] LABS: ALT 21 U/L (16-63); AST 17 U/L (15-37); Albumin 3.7 g/dL (3.4-5.0); Alkaline Phosphatase 64 U/L (46-116); Anion Gap 4.1 mmol/L (3-11); BUN 12 mg/dL (7-18); Bilirubin, Total 0.4 mg/dL (0.2-1.0); CO2 33.9 mmol/L (21.0-32.0); CREATININE 0.9 mg/dL (0.70-1.30); Calcium 9.6 mg/dL (8.5-10.1); Chloride 96 mmol/L (98-107); Glucose 110 mg/dL (74-106); Potassium 4.4 mmol/L (3.5-5.1); Sodium 134 mmol/L (136-145); Total Protein 7.8 g/dL (6.4-8.2)
== END 2021-02-13 01:19 | disposition home or self-care (01) ==
PROVIDERS: PCP Family Medicine; Visit Provider Internal Medicine
DX: C71.9 Malignant neoplasm of brain, unspecified (principal)
CPT/HCPCS: 36415; 80053; 81003; 81015; 85025

== ENCOUNTER 2021-03-27 00:39 | Outpatient (CLI) | payer MEDICAID, SELFPAY ==
[2021-03-27 10:30] LABS: Bilirubin Negative (Negative); Blood Negative (Negative); Clarity Clear (Clear); Glucose Negative (Negative); Ketones Negative (Negative); Leukocyte Esterase Negative (Negative); Nitrite Negative (Negative); Specific Gravity 1.025 (1.005-1.025); Urobilinogen 0.2 EU/dL (Up TO 0.2)
[2021-03-27 10:43] LABS: Bacteria Negative HPF (Negative); C & S Indicated? No; Casts 3-5 Hyaline LPF (Negative); Crystals Negative HPF (Negative); Epithelial Cells Rare HPF (Negative); Mucus Negative (Negative); RBC Negative HPF (0-2); WBC Negative HPF (0-5)
[2021-03-27 11:02] LABS: Abs Immature Grans 0.02 10^3/uL (0.0-0.06); Absolute Basophil Count 0.03 10^3/uL (0.0-0.2); Absolute Eosinophil Count 0.09 10^3/uL (0.0-0.7); Absolute Lymphocyte Count 1.18 10^3/uL (1.2-3.4); Absolute Monocyte Count 0.43 10^3/uL (0.1-0.8); Absolute Neutrophil Count 4.09 10^3/uL (1.2-6.7); Basophils % 0.5; Eosinophils % 1.5; HCT 41.7 % (40.0-50.0); HGB 14.1 g/dL (13.5-17.5); Immature Grans % 0.3; Lymphocytes % 20.2; MCH 31.5 pg (27.0-33.0); MCHC 33.8 % (32.0-36.0); MCV 93.1 fL (80-95); MPV 8.1 fL (8.0-11.0); Monocytes % 7.4; Neutrophils % 70.1; Nucleated RBC 0 %; Platelet Count 138 10^3/uL (130-400); RBC 4.48 10^6/uL (4.36-5.78); RDW 15.1 % (11.8-14.1); RDW-SD 52.1 fL; WBC 5.84 10^3/uL (4.4-10.8)
[2021-03-27 11:21] LABS: ALT 17 U/L (16-63); AST 19 U/L (15-37); Albumin 3.5 g/dL (3.4-5.0); Alkaline Phosphatase 54 U/L (46-116); Anion Gap 6.9 mmol/L (3-11); BUN 11 mg/dL (7-18); Bilirubin, Total 0.3 mg/dL (0.2-1.0); CO2 29.1 mmol/L (21.0-32.0); CREATININE 0.7 mg/dL (0.70-1.30); Calcium 8.5 mg/dL (8.5-10.1); Chloride 95 mmol/L (98-107); Glucose 97 mg/dL (74-106); Potassium 4.3 mmol/L (3.5-5.1); Sodium 131 mmol/L (136-145); Total Protein 7.3 g/dL (6.4-8.2)
[2021-03-27] MEDS: Gadoterate meglumine 20 ML VIAL 15 ML IVP (11:31)
[2021-03-27] MEDS: Normal Saline Flush 10 ML SYR IVP (11:31)
--- NOTE | 2021-03-27 11:50 | DI.MRI_ITS ---
Exam(s) MR BRAIN WO/W EXAM: MR BRAIN WO/W CLINICAL HISTORY: F/U GLIOBLASTOMA, C71.9 TECHNIQUE: Multiplanar multisequence MRI of the brain was performed. Both noninfused and contrast i nfused sequences were performed. IV Contrast injected was cc Dotarem. COMPARISON: MR MR BRAIN WO/W from 01/02/2021 FINDINGS: CEREBRAL PARENCHYMA: Again noted is the right-sided craniotomy site with stable subjacent encephaloma lacia and no areas of no abnormal intra-axial signal nor abnormal new enhancement to suggest recurren ce or new mass. Also no evidence of hemorrhage. No new ring-enhancing lesions in the brain nor new abnormal meningeal enhancement. No evidence of dural sinus thrombosis DWI: There are no new areas of restricted diffusion. SWI: No new areas of hemorrhage. PITUITARY GLAND: No mass nor parasellar abnormality. No obvious abnormality in the cavernous sinuses. FLOW VOIDS: The expected flow void are noted. No evidence of obvious aneurysm nor obvious vascular ma lformation. PARANASAL SINUSES: The amount of mucosal thickening and fluid in the right sphenoid sinus has diminis hed, almost resolved. Other paranasal sinuses are clear, as are the ethmoidal air cells. However, t here is abnormal signal noted in the right mastoid air cells , similar to the previous study. Left-s ided mastoid air cells are clear. No new posterior fossa findings. ORBITS: No obvious abnormal findings. IMPRESSION: 1. No new significant intracranial findings. The right sided craniotomy site remains stable. No new areas of intracranial signal abnormality nor enhancement. No evidence of hemorrhage. 2. Amount of mucosal disease in the right sphenoid sinus has significantly decreased. Some signal abnormality in the right mastoid air cells is unchanged from the prior study. DATA REPOSITORY:
== END 2021-03-27 00:59 ==
PROVIDERS: PCP Family Medicine; Visit Provider Internal Medicine
DX: C71.9 Malignant neoplasm of brain, unspecified (principal); G93.89 Other specified disorders of brain; H74.8X1 Other specified disorders of right middle ear and mastoid; R82.998 Other abnormal findings in urine
CPT/HCPCS: 70553; 80053; 81003; 81015; 85025

== ENCOUNTER 2021-04-17 02:21 | Outpatient (CLI) | payer MEDICAID, SELFPAY ==
[2021-04-17 10:30] LABS: Abs Immature Grans 0.03 10^3/uL (0.0-0.06); Absolute Basophil Count 0.04 10^3/uL (0.0-0.2); Absolute Monocyte Count 0.59 10^3/uL (0.1-0.8); Absolute Neutrophil Count 4.44 10^3/uL (1.2-6.7); Basophils % 0.6; Eosinophils % 1.5; HCT 41.6 % (40.0-50.0); Immature Grans % 0.5; Lymphocytes % 21.2; MCH 31.1 pg (27.0-33.0); MCHC 33.7 % (32.0-36.0); MCV 92.4 fL (80-95); MPV 8.2 fL (8.0-11.0); Monocytes % 8.9; Neutrophils % 67.3; Nucleated RBC 0 %; Platelet Count 144 10^3/uL (130-400); RDW 15.1 % (11.8-14.1); RDW-SD 51.7 fL
[2021-04-17 10:32] LABS: Bilirubin Negative (Negative); Blood Negative (Negative); Clarity Clear (Clear); Glucose Negative (Negative); Ketones Negative (Negative); Leukocyte Esterase Negative (Negative); Nitrite Negative (Negative); Specific Gravity 1.025 (1.005-1.025); Urobilinogen 0.2 EU/dL (Up TO 0.2); pH 5.5 (5-8)
[2021-04-17 10:41] LABS: Bacteria Negative HPF (Negative); C & S Indicated? No; Casts 5-10 Hyaline LPF (Negative); Crystals Negative HPF (Negative); Epithelial Cells Rare HPF (Negative); Mucus Trace (Negative); RBC Negative HPF (0-2); WBC Negative HPF (0-5)
[2021-04-17 10:49] LABS: ALT 20 U/L (16-63); AST 17 U/L (15-37); Albumin 3.5 g/dL (3.4-5.0); Alkaline Phosphatase 55 U/L (46-116); Anion Gap 9.2 mmol/L (3-11); BUN 9 mg/dL (7-18); Bilirubin, Total 0.3 mg/dL (0.2-1.0); CO2 24.8 mmol/L (21.0-32.0); CREATININE 0.7 mg/dL (0.70-1.30); Calcium 8.8 mg/dL (8.5-10.1); Chloride 97 mmol/L (98-107); Glucose 123 mg/dL (74-106); Potassium 4.1 mmol/L (3.5-5.1); Sodium 131 mmol/L (136-145); Total Protein 7.2 g/dL (6.4-8.2)
== END 2021-04-17 02:22 | disposition home or self-care (01) ==
LOC: LBO 02:22
PROVIDERS: PCP Family Medicine; Visit Provider Nurse Practitioner Adult Health
DX: C71.9 Malignant neoplasm of brain, unspecified (principal)
CPT/HCPCS: 36415; 80053; 81003; 81015; 85025

== ENCOUNTER 2021-07-03 00:42 | Outpatient (CLI) | payer MEDICAID, SELFPAY ==
--- NOTE | 2021-07-03 | DI.CT_ITS ---
Exam(s) CT ABDOMEN PELVIS CTA EXAM: CT ABDOMEN PELVIS CTA CLINICAL HISTORY: HX AAA REPAIR, IDIOPATHIC COLITIS, ? STENOSIS,. TECHNIQUE: Imaging Protocol: Axial CT angiography was performed with multi-slice acquisition and m ulti-planar and/or 3D reconstructions. CONTRAST MATERIAL: Intravenous: Omnipaque 350 Contrast volume:90 ml Oral: no COMPARISON: No exams were available for comparison FINDINGS: Vascular Structures: Celiac [place]/SMA: No evidence of stenosis. Renal Arteries: No evidence of stenosis. There is a single renal artery perfusing the right kidney wh ich shows stenosis at the origin. The perfusion appears symmetric. Two arteries perfuse the left ki dney without significant stenosis.. Aorta: Atherosclerotic changes proximal abdominal aorta. There are 2 aortobifemoral bypass grafts. The 1st repair is occluded. The 2nd repair is patent throughout without stenosis. There is no ja dence of leak. [place] iliac arteries heavily calcified and severely stenotic. Some flow is seen in the bilateral external and internal iliac arteries. Pelvis: Iliac Arteries: No evidence of stenosis. Common Femoral Arteries: No evidence of stenosis. Soft Tissues: Lung bases:Normal. Liver: Normal density. No measurable mass. Gallbladder and biliary tract: No radiodense calculus or dilation. Pancreas: Normal density, no abnormal calcifications or inflammatory process. Spleen: Normal. Kidneys: Normal size, contour and axis. No radiodense stones or obstructive uropathy. Small cyst low er pole right kidney. No masses seen. Adrenal glands: No masses seen. Bladder: Symmetric distention, no gross wall thickening. Bowel: No obstruction or bowel wall thickening. Peritoneal cavity: No ascites, collection or mesenteric inflammatory response. Bones: Within normal limits. Lymph nodes: Within normal limits. IMPRESSION: Patent aortobifemoral bypass graft without evidence of leak. stenosis at the origin of the right montse al artery No acute abnormality of the abdomen or pelvis. RADIATION DOSE DELIVERED: 1,421.65mGy.cm Total DLP DATA REPOSITORY: All CT scans at this facility are submitted to the National Radiology Data Registry (NRDR) Dose Index Registry (DIR) with the [employer] (ACR). RADIATION OPTIMIZATION: All CT scans at this facility use at least one of these dose optimization te chniques: automated exposure control; mA and/or kV adjustment per patient size (includes targeted exa ms where dose is matched to clinical indication); or iterative reconstruction.
[2021-07-03] MEDS: Omnipaque 350 MG/ML 100 ML BTL IJ (10:29)
[2021-07-03] MEDS: Normal Saline Flush 10 ML SYR IVP (10:31)
== END 2021-07-03 01:02 ==
PROVIDERS: PCP Family Medicine; Visit Provider Internal Medicine
DX: K51.519 Left sided colitis with unspecified complications (principal); Z98.890 Other specified postprocedural states; I70.1 Atherosclerosis of renal artery; Z95.828 Presence of other vascular implants and grafts
CPT/HCPCS: 74174; J3490

== ENCOUNTER 2021-07-10 17:47 | Outpatient (REF) | payer MEDICAID, SELFPAY ==
[2021-07-10 13:47] LABS: Abs Immature Grans 0.04 10^3/uL (0.0-0.06); Absolute Basophil Count 0.05 10^3/uL (0.0-0.2); Absolute Eosinophil Count 0.11 10^3/uL (0.0-0.7); Absolute Lymphocyte Count 1.43 10^3/uL (1.2-3.4); Absolute Monocyte Count 0.54 10^3/uL (0.1-0.8); Absolute Neutrophil Count 3.84 10^3/uL (1.2-6.7); Basophils % 0.8; Eosinophils % 1.8; HCT 41.6 % (40.0-50.0); Immature Grans % 0.7; Lymphocytes % 23.8; MCH 31.1 pg (27.0-33.0); MCHC 33.7 % (32.0-36.0); MCV 92 fL (80-95); MPV 8.5 fL (8.0-11.0); Neutrophils % 63.9; Platelet Count 162 10^3/uL (130-400); RDW 15.4 % (11.8-14.1); WBC 6.01 10^3/uL (4.4-10.8)
[2021-07-10 13:53] LABS: ALT 17 U/L (16-63); AST 12 U/L (15-37); Albumin 3.4 g/dL (3.4-5.0); Alkaline Phosphatase 57 U/L (46-116); Anion Gap 8.1 mmol/L (3-11); BUN 9 mg/dL (7-18); Bilirubin, Total 0.3 mg/dL (0.2-1.0); CO2 27.9 mmol/L (21.0-32.0); CREATININE 0.8 mg/dL (0.70-1.30); Calcium 8.8 mg/dL (8.5-10.1); Chloride 98 mmol/L (98-107); Glucose 114 mg/dL (74-106); Potassium 3.6 mmol/L (3.5-5.1); Sodium 134 mmol/L (136-145); Total Protein 7.1 g/dL (6.4-8.2)
== END 2021-07-10 17:48 | disposition home or self-care (01) ==
LOC: LBN 17:47
PROVIDERS: PCP Family Medicine; Visit Provider Nurse Practitioner Adult Health
DX: C71.9 Malignant neoplasm of brain, unspecified (principal)
CPT/HCPCS: 80053; 85025

== ENCOUNTER 2021-07-26 13:34 | Outpatient (REF) | payer MEDICAID, SELFPAY ==
[2021-07-26 15:47] LABS: Bilirubin Negative (Negative); Blood Trace-intact (Negative); Clarity Clear (Clear); Glucose Negative (Negative); Ketones Negative (Negative); Leukocyte Esterase Negative (Negative); Nitrite Negative (Negative); Specific Gravity 1.015 (1.005-1.025); Urobilinogen 0.2 EU/dL (Up TO 0.2); pH 5.5 (5-8)
[2021-07-26 15:53] LABS: Bacteria Negative HPF (Negative); C & S Indicated? No; Casts Negative LPF (Negative); Crystals Negative HPF (Negative); Epithelial Cells Negative HPF (Negative); Mucus Negative (Negative); Other Cells Few Spermatozoa (Negative); WBC 0-2 HPF (0-5)
== END 2021-07-26 13:35 | disposition home or self-care (01) ==
LOC: LBN 13:34
PROVIDERS: PCP Family Medicine; Visit Provider Nurse Practitioner Adult Health
DX: C71.9 Malignant neoplasm of brain, unspecified (principal); R82.998 Other abnormal findings in urine
CPT/HCPCS: 81003; 81015

== ENCOUNTER 2021-07-30 14:59 | Outpatient (REF) | payer MEDICAID, SELFPAY ==
[2021-07-30 11:18] LABS: PROTEIN 17.7 mg/dL (0.0-11.9)
[2021-07-30 11:23] LABS: TOTAL PROTEIN,URINE TIMED 380.6 mg/24hr (0.0-149.1); Total Volume 2150 ml
== END 2021-07-30 15:00 | disposition home or self-care (01) ==
LOC: LBN 14:59
PROVIDERS: PCP Family Medicine; Visit Provider Internal Medicine
DX: C71.9 Malignant neoplasm of brain, unspecified (principal)
CPT/HCPCS: 81050; 84155

== ENCOUNTER → 2021-08-09 00:48 | Outpatient (CLI) | payer MEDICAID, SELFPAY ==
--- NOTE | 2021-08-09 10:45 | DI.MRI_ITS ---
Exam(s) MR BRAIN WO/W EXAM: MR BRAIN WO/W CLINICAL HISTORY: GLIOBLASTOMA, C71.9; RESTARTED AVASTIN TECHNIQUE: Multiplanar multisequence MRI of the brain was performed. CONTRAST MATERIAL: IV Contrast: 16 mL of Dotarem contrast administered. COMPARISON: MR MR BRAIN WO/W from 03/27/2021 FINDINGS: The examination is limited due to patient motion artifact. VENTRICLES AND EXTRA AXIAL SPACES: Normal in size and morphology for the patient's age. Stable ventri cular size. HEMORRHAGE: No new intraparenchymal hemorrhage. CEREBRAL PARENCHYMA: There is again seen a stable area of encephalomalacia in the left temporal lobe and prior right-sided craniotomy. There has been no change in appearance of the operative bed. No n ew abnormal enhancement is identified. No space-occupying lesion identified. MIDLINE SHIFT: None. BRAINSTEM/CEREBELLUM: Normal. CALVARIUM: Normal. ENHANCEMENT: No new abnormal enhancement is identified. VISUALIZED PARANASAL SINUSES/MASTOIDS: There is minimal mucosal thickening in the right sphenoid sinu s. Opacification of the right mastoid air cells is again seen. The remaining visualized paranasal s inuses are clear. [place]: Normal flow void. PITUITARY GLAND: Unremarkable. OTHER FINDINGS: IMPRESSION: Stable appearance of the brain since 03/27/2021. DATA REPOSITORY:
[2021-08-09] MEDS: Gadoterate meglumine 20 ML VIAL IVP (11:41)
[2021-08-09] MEDS: Normal Saline Flush 10 ML SYR IVP (11:42)
== END ==
PROVIDERS: PCP Family Medicine; Visit Provider Internal Medicine
DX: C71.9 Malignant neoplasm of brain, unspecified (principal)
CPT/HCPCS: 70553

== ENCOUNTER → 2021-10-15 01:04 | Outpatient (CLI) | payer MEDICAID, SELFPAY ==
[2021-10-15 09:49] LABS: CREATININE 0.7 mg/dL (0.70-1.30)
--- NOTE | 2021-10-15 10:20 | DI.MRI_ITS ---
Exam(s) MR BRAIN WO/W EXAM: MR BRAIN WO/W CLINICAL HISTORY: F/U [id number],ON OPTUNE MONOTHERAPY,C71.9 TECHNIQUE: Multiplanar multisequence MRI of the brain was performed. Both noninfused and contrast i nfused sequences were performed. IV Contrast injected was 15 cc Dotarem. COMPARISON: MR MR BRAIN WO/W from 03/27/2021 MR MR BRAIN WO/W from 08/09/2021 FINDINGS: CEREBRAL PARENCHYMA: The right-side surgical bed continues to remain stable in appearance. No new abn ormal ring enhancement nor nodular enhancement evident in this region, nor elsewhere in the brain. Sy s white matter signal is unchanged. No new focal findings elsewhere in the brain. No new abnormal meningeal enhancement. FLOW VOIDS: The expected flow void are noted. No evidence of obvious aneurysm nor obvious vascular ma lformation. PARANASAL SINUSES: Small retention cysts now evident in the posterior aspect of the sphenoid sinus. M axillary sinuses remain clear as do the frontal sinuses and mastoid air cells on the left side. There is fluid signal again noted right this is unchanged from the previous study. ORBITS: No obvious abnormal findings. IMPRESSION: 1. Continued stable appearance without significant change compared to 03/27/2021. 2. Fluid signal in right-sided mastoid air cells again noted. There is also a new small post inflamma tory retention cyst in the sphenoid sinus. No fluid levels. Maxillary sinuses remain clear as do the frontal sinuses. DATA REPOSITORY:
== END ==
PROVIDERS: PCP Family Medicine; Visit Provider Internal Medicine
DX: C71.9 Malignant neoplasm of brain, unspecified (principal)
CPT/HCPCS: 70553; 82565

== ENCOUNTER 2022-01-01 09:44 | Outpatient (CLI) | payer MEDICAID, SELFPAY ==
[2022-01-01 12:58] LABS: Abs Immature Grans 0.03 10^3/uL (0.0-0.06); Absolute Basophil Count 0.05 10^3/uL (0.0-0.2); Absolute Eosinophil Count 0.11 10^3/uL (0.0-0.7); Absolute Lymphocyte Count 1.62 10^3/uL (1.2-3.4); Absolute Monocyte Count 0.65 10^3/uL (0.1-0.8); Absolute Neutrophil Count 3.65 10^3/uL (1.2-6.7); Basophils % 0.8; Eosinophils % 1.8; HCT 38.9 % (40.0-50.0); Immature Grans % 0.5; Lymphocytes % 26.5; MCH 30.6 pg (27.0-33.0); MCHC 33.4 % (32.0-36.0); MCV 92 fL (80-95); Monocytes % 10.6; Neutrophils % 59.8; Platelet Count 180 10^3/uL (130-400); RBC 4.25 10^6/uL (4.36-5.78); RDW 14.7 % (11.8-14.1); RDW-SD 49.7 fL; WBC 6.11 10^3/uL (4.4-10.8)
[2022-01-01 13:00] LABS: Bilirubin Negative (Negative); Blood Small (Negative); Clarity Clear (Clear); Glucose Negative (Negative); Ketones Negative (Negative); Leukocyte Esterase Negative (Negative); Nitrite Negative (Negative); Specific Gravity 1.025 (1.005-1.025); Urobilinogen 0.2 EU/dL (Up TO 0.2)
[2022-01-01 13:06] LABS: Bacteria Rare HPF (Negative); C & S Indicated? No; Casts Negative LPF (Negative); Crystals Negative HPF (Negative); Epithelial Cells Rare HPF (Negative); Mucus Moderate (Negative); WBC 0-2 HPF (0-5)
[2022-01-01 13:17] LABS: ALT 13 U/L (16-63); AST 17 U/L (15-37); Albumin 3.6 g/dL (3.4-5.0); Alkaline Phosphatase 62 U/L (46-116); Anion Gap 6.2 mmol/L (3-11); BUN 13 mg/dL (7-18); Bilirubin, Total 0.2 mg/dL (0.2-1.0); CO2 29.8 mmol/L (21.0-32.0); CREATININE 0.8 mg/dL (0.70-1.30); Calcium 9.3 mg/dL (8.5-10.1); Chloride 96 mmol/L (98-107); Estimated GFR 99.44 (mL/min/1.73m2); Glucose 101 mg/dL (74-106); Potassium 4.3 mmol/L (3.5-5.1); Sodium 132 mmol/L (136-145); Total Protein 7.7 g/dL (6.4-8.2)
== END 2022-01-01 09:45 | disposition home or self-care (01) ==
LOC: LBO 01-07 09:44
PROVIDERS: Internal Medicine; PCP Nurse Practitioner Adult Health; Visit Provider Nurse Practitioner Adult Health
DX: C71.9 Malignant neoplasm of brain, unspecified (principal)
CPT/HCPCS: 36415; 80053; 81003; 81015; 85025

== ENCOUNTER 2022-01-15 12:27 | Outpatient (CLI) | payer MEDICAID, SELFPAY ==
[2022-01-15 11:55] LABS: Abs Immature Grans 0.01 10^3/uL (0.0-0.06); Absolute Basophil Count 0.03 10^3/uL (0.0-0.2); Absolute Eosinophil Count 0.09 10^3/uL (0.0-0.7); Absolute Lymphocyte Count 0.89 10^3/uL (1.2-3.4); Absolute Monocyte Count 0.62 10^3/uL (0.1-0.8); Absolute Neutrophil Count 2.44 10^3/uL (1.2-6.7); Basophils % 0.7; Eosinophils % 2.2; HCT 40.1 % (40.0-50.0); HGB 13.6 g/dL (13.5-17.5); Immature Grans % 0.2; Lymphocytes % 21.8; MCH 30.7 pg (27.0-33.0); MCHC 33.9 % (32.0-36.0); MCV 91 fL (80-95); Monocytes % 15.2; Neutrophils % 59.9; Platelet Count 143 10^3/uL (130-400); RBC 4.43 10^6/uL (4.36-5.78); RDW 14.6 % (11.8-14.1); RDW-SD 49.3 fL; WBC 4.08 10^3/uL (4.4-10.8)
[2022-01-15 11:57] LABS: Bilirubin Negative (Negative); Blood Small (Negative); Clarity Clear (Clear); Glucose Negative (Negative); Ketones Negative (Negative); Leukocyte Esterase Negative (Negative); Nitrite Negative (Negative); Specific Gravity >= 1.030 (1.005-1.025); Urobilinogen 0.2 EU/dL (Up TO 0.2)
[2022-01-15 12:03] LABS: Bacteria Negative HPF (Negative); Crystals Negative HPF (Negative); Epithelial Cells Rare HPF (Negative); Mucus Trace (Negative); RBC 0-2 HPF (0-2); WBC Negative HPF (0-5)
[2022-01-15 12:04] LABS: C & S Indicated? No; Casts Negative LPF (Negative)
[2022-01-15 12:06] LABS: ALT 15 U/L (16-63); AST 14 U/L (15-37); Albumin 3.6 g/dL (3.4-5.0); Alkaline Phosphatase 65 U/L (46-116); Anion Gap 4.7 mmol/L (3-11); BUN 16 mg/dL (7-18); Bilirubin, Total 0.2 mg/dL (0.2-1.0); CO2 30.3 mmol/L (21.0-32.0); CREATININE 0.9 mg/dL (0.70-1.30); Calcium 9.1 mg/dL (8.5-10.1); Chloride 97 mmol/L (98-107); Estimated GFR 95.97 (mL/min/1.73m2); Glucose 103 mg/dL (74-106); Potassium 3.9 mmol/L (3.5-5.1); Sodium 132 mmol/L (136-145); Total Protein 7.4 g/dL (6.4-8.2)
== END 2022-01-15 12:28 | disposition home or self-care (01) ==
LOC: LBO 12:29
PROVIDERS: PCP Nurse Practitioner Adult Health; Visit Provider Nurse Practitioner Adult Health
DX: C71.9 Malignant neoplasm of brain, unspecified (principal); R82.998 Other abnormal findings in urine
CPT/HCPCS: 36415; 80053; 81003; 81015; 85025

== ENCOUNTER 2022-01-29 12:27 | Outpatient (CLI) | payer MEDICAID, SELFPAY ==
[2022-01-29 11:17] LABS: Abs Immature Grans 0.02 10^3/uL (0.0-0.06); Absolute Basophil Count 0.07 10^3/uL (0.0-0.2); Absolute Eosinophil Count 0.08 10^3/uL (0.0-0.7); Absolute Lymphocyte Count 1.44 10^3/uL (1.2-3.4); Absolute Monocyte Count 0.65 10^3/uL (0.1-0.8); Absolute Neutrophil Count 4.05 10^3/uL (1.2-6.7); Basophils % 1.1; Eosinophils % 1.3; HCT 43.2 % (40.0-50.0); HGB 14.5 g/dL (13.5-17.5); Immature Grans % 0.3; Lymphocytes % 22.8; MCH 30.1 pg (27.0-33.0); MCHC 33.6 % (32.0-36.0); MCV 90 fL (80-95); MPV 8.2 fL (8.0-11.0); Monocytes % 10.3; Neutrophils % 64.2; Platelet Count 174 10^3/uL (130-400); RBC 4.81 10^6/uL (4.36-5.78); RDW 14.4 % (11.8-14.1); WBC 6.31 10^3/uL (4.4-10.8)
[2022-01-29 11:18] LABS: Bilirubin Negative (Negative); Blood Trace-intact (Negative); Clarity Clear (Clear); Glucose Negative (Negative); Ketones Negative (Negative); Leukocyte Esterase Negative (Negative); Nitrite Negative (Negative); Specific Gravity >= 1.030 (1.005-1.025); Urobilinogen 0.2 EU/dL (Up TO 0.2)
[2022-01-29 11:25] LABS: Bacteria Negative HPF (Negative); C & S Indicated? No; Casts Negative LPF (Negative); Crystals Negative HPF (Negative); Epithelial Cells Rare HPF (Negative); Mucus Trace (Negative); RBC 0-2 HPF (0-2); WBC Negative HPF (0-5)
[2022-01-29 11:51] LABS: ALT 12 U/L (16-63); AST 16 U/L (15-37); Albumin 3.8 g/dL (3.4-5.0); Alkaline Phosphatase 68 U/L (46-116); Anion Gap 5.7 mmol/L (3-11); BUN 12 mg/dL (7-18); Bilirubin, Total 0.3 mg/dL (0.2-1.0); CO2 30.3 mmol/L (21.0-32.0); CREATININE 0.9 mg/dL (0.70-1.30); Calcium 9.2 mg/dL (8.5-10.1); Chloride 98 mmol/L (98-107); Estimated GFR 95.97 (mL/min/1.73m2); Glucose 95 mg/dL (74-106); Potassium 3.9 mmol/L (3.5-5.1); Sodium 134 mmol/L (136-145); Total Protein 7.7 g/dL (6.4-8.2)
== END 2022-01-29 12:28 | disposition home or self-care (01) ==
LOC: LBO 12:32
PROVIDERS: PCP Nurse Practitioner Adult Health; Visit Provider Nurse Practitioner Adult Health
DX: C71.9 Malignant neoplasm of brain, unspecified (principal)
CPT/HCPCS: 36415; 80053; 81003; 81015; 85025

== ENCOUNTER 2022-01-29 15:26 | Outpatient (REF) | payer MEDICAID, SELFPAY ==
[2022-01-29 12:30] LABS: PROTEIN 14.3 mg/dL (0.0-11.9)
[2022-01-29 12:37] LABS: TOTAL PROTEIN,URINE TIMED 200.2 mg/24hr (0.0-149.1); Total Volume 1400 ml
== END 2022-01-29 15:27 | disposition home or self-care (01) ==
LOC: LBN 15:26
PROVIDERS: PCP Nurse Practitioner Adult Health; Visit Provider Internal Medicine
DX: C71.9 Malignant neoplasm of brain, unspecified (principal)
CPT/HCPCS: 81050; 84155

== ENCOUNTER 2022-02-12 02:45 | Outpatient (CLI) | payer MEDICAID, SELFPAY ==
[2022-02-12 10:30] LABS: Abs Immature Grans 0.02 10^3/uL (0.0-0.06); Absolute Basophil Count 0.06 10^3/uL (0.0-0.2); Absolute Eosinophil Count 0.15 10^3/uL (0.0-0.7); Absolute Lymphocyte Count 1.57 10^3/uL (1.2-3.4); Absolute Monocyte Count 0.58 10^3/uL (0.1-0.8); Absolute Neutrophil Count 4.67 10^3/uL (1.2-6.7); Basophils % 0.9; Eosinophils % 2.1; HCT 46.4 % (40.0-50.0); HGB 15.3 g/dL (13.5-17.5); Immature Grans % 0.3; Lymphocytes % 22.3; MCH 30.1 pg (27.0-33.0); MCV 91 fL (80-95); MPV 8.1 fL (8.0-11.0); Monocytes % 8.2; Neutrophils % 66.2; Platelet Count 189 10^3/uL (130-400); RBC 5.08 10^6/uL (4.36-5.78); RDW 14.6 % (11.8-14.1); RDW-SD 49.6 fL; WBC 7.05 10^3/uL (4.4-10.8)
[2022-02-12 10:32] LABS: Bilirubin Negative (Negative); Blood Trace-intact (Negative); Clarity Clear (Clear); Glucose Negative (Negative); Ketones Negative (Negative); Leukocyte Esterase Negative (Negative); Nitrite Negative (Negative); Specific Gravity >= 1.030 (1.005-1.025); Urobilinogen 0.2 EU/dL (Up TO 0.2); pH 6.5 (5-8)
[2022-02-12 10:39] LABS: Bacteria Negative HPF (Negative); C & S Indicated? No; Casts 0-2 Hyaline LPF (Negative); Crystals Negative HPF (Negative); Epithelial Cells Rare HPF (Negative); Mucus Trace (Negative); RBC 0-2 HPF (0-2); WBC Negative HPF (0-5)
[2022-02-12 11:03] LABS: ALT 18 U/L (16-63); AST 22 U/L (15-37); Albumin 3.9 g/dL (3.4-5.0); Alkaline Phosphatase 66 U/L (46-116); Anion Gap 6.7 mmol/L (3-11); BUN 13 mg/dL (7-18); Bilirubin, Total 0.3 mg/dL (0.2-1.0); CO2 31.3 mmol/L (21.0-32.0); CREATININE 0.9 mg/dL (0.70-1.30); Calcium 9.6 mg/dL (8.5-10.1); Chloride 95 mmol/L (98-107); Estimated GFR 95.97 (mL/min/1.73m2); Glucose 100 mg/dL (74-106); Potassium 3.8 mmol/L (3.5-5.1); Sodium 133 mmol/L (136-145); Total Protein 8.1 g/dL (6.4-8.2)
== END 2022-02-12 02:46 | disposition home or self-care (01) ==
LOC: LBO 02:47
PROVIDERS: PCP Nurse Practitioner Adult Health; Visit Provider Internal Medicine
DX: C71.9 Malignant neoplasm of brain, unspecified (principal)
CPT/HCPCS: 36415; 80053; 81003; 81015; 85025

== ENCOUNTER 2022-02-27 02:10 | Outpatient (CLI) | payer MEDICAID, SELFPAY ==
[2022-02-27 08:23] LABS: Abs Immature Grans 0.01 10^3/uL (0.0-0.06); Absolute Basophil Count 0.07 10^3/uL (0.0-0.2); Absolute Eosinophil Count 0.15 10^3/uL (0.0-0.7); Absolute Lymphocyte Count 1.24 10^3/uL (1.2-3.4); Absolute Monocyte Count 0.95 10^3/uL (0.1-0.8); Absolute Neutrophil Count 3.27 10^3/uL (1.2-6.7); Basophils % 1.2; Eosinophils % 2.6; HCT 46.8 % (40.0-50.0); HGB 15.7 g/dL (13.5-17.5); Immature Grans % 0.2; Lymphocytes % 21.8; MCH 30.7 pg (27.0-33.0); MCHC 33.5 % (32.0-36.0); MCV 92 fL (80-95); MPV 8.6 fL (8.0-11.0); Monocytes % 16.7; Neutrophils % 57.5; Platelet Count 160 10^3/uL (130-400); RBC 5.11 10^6/uL (4.36-5.78); RDW 15.2 % (11.8-14.1); RDW-SD 51.3 fL; WBC 5.69 10^3/uL (4.4-10.8)
[2022-02-27 08:30] LABS: Bilirubin Negative (Negative); Blood Moderate (Negative); Clarity Clear (Clear); Glucose Negative (Negative); Ketones Negative (Negative); Leukocyte Esterase Negative (Negative); Nitrite Negative (Negative); Specific Gravity >= 1.030 (1.005-1.025); Urobilinogen 0.2 EU/dL (Up TO 0.2); pH 5.5 (5-8)
[2022-02-27 08:37] LABS: ALT 17 U/L (16-63); AST 20 U/L (15-37); Albumin 3.9 g/dL (3.4-5.0); Alkaline Phosphatase 67 U/L (46-116); BUN 16 mg/dL (7-18); Bacteria Rare HPF (Negative); Bilirubin, Total 0.4 mg/dL (0.2-1.0); C & S Indicated? No; CREATININE 0.9 mg/dL (0.70-1.30); Calcium 9.4 mg/dL (8.5-10.1); Casts Negative LPF (Negative); Chloride 97 mmol/L (98-107); Crystals Negative HPF (Negative); Epithelial Cells Negative HPF (Negative); Estimated GFR 95.97 (mL/min/1.73m2); Glucose 63 mg/dL (74-106); Mucus Moderate (Negative); Other Cells Negative (Negative); Potassium 3.8 mmol/L (3.5-5.1); Sodium 132 mmol/L (136-145); Total Protein 8.1 g/dL (6.4-8.2); WBC 0-2 HPF (0-5)
== END 2022-02-27 02:11 | disposition home or self-care (01) ==
PROVIDERS: PCP Nurse Practitioner Adult Health; Visit Provider Internal Medicine
DX: C71.9 Malignant neoplasm of brain, unspecified (principal)
CPT/HCPCS: 36415; 80053; 81003; 81015; 85025

== ENCOUNTER 2022-04-09 04:10 | Outpatient (CLI) | payer MEDICAID, SELFPAY ==
[2022-04-09 08:28] LABS: Abs Immature Grans 0.02 10^3/uL (0.0-0.06); Absolute Basophil Count 0.05 10^3/uL (0.0-0.2); Absolute Eosinophil Count 0.14 10^3/uL (0.0-0.7); Absolute Lymphocyte Count 1.28 10^3/uL (1.2-3.4); Absolute Neutrophil Count 4.54 10^3/uL (1.2-6.7); Basophils % 0.7; Eosinophils % 2.1; HGB 15.9 g/dL (13.5-17.5); Immature Grans % 0.3; MCH 30.9 pg (27.0-33.0); MCHC 34.6 % (32.0-36.0); MCV 89 fL (80-95); MPV 8.3 fL (8.0-11.0); Monocytes % 10.4; Neutrophils % 67.5; Platelet Count 167 10^3/uL (130-400); RBC 5.15 10^6/uL (4.36-5.78); RDW 15.7 % (11.8-14.1); RDW-SD 51.8 fL; WBC 6.73 10^3/uL (4.4-10.8)
[2022-04-09 08:34] LABS: Bilirubin Negative (Negative); Blood Moderate (Negative); Clarity Clear (Clear); Glucose Negative (Negative); Ketones Negative (Negative); Leukocyte Esterase Negative (Negative); Nitrite Negative (Negative); Urobilinogen 0.2 EU/dL (Up TO 0.2); pH 5.5 (5-8)
[2022-04-09 08:41] LABS: ALT 16 U/L (16-63); AST 18 U/L (15-37); Albumin 3.8 g/dL (3.4-5.0); Alkaline Phosphatase 73 U/L (46-116); Anion Gap 4.3 mmol/L (3-11); BUN 12 mg/dL (7-18); Bilirubin, Total 0.3 mg/dL (0.2-1.0); CO2 32.7 mmol/L (21.0-32.0); CREATININE 1.1 mg/dL (0.70-1.30); Calcium 9.4 mg/dL (8.5-10.1); Chloride 98 mmol/L (98-107); Estimated GFR 75.43 (mL/min/1.73m2); Glucose 65 mg/dL (74-106); Potassium 3.8 mmol/L (3.5-5.1); Sodium 135 mmol/L (136-145)
[2022-04-09 08:49] LABS: Bacteria Rare HPF (Negative); Epithelial Cells Rare HPF (Negative); WBC 0-2 HPF (0-5)
[2022-04-09 08:50] LABS: C & S Indicated? No; Casts Negative LPF (Negative); Crystals Negative HPF (Negative); Mucus Moderate (Negative)
== END 2022-04-09 04:11 | disposition home or self-care (01) ==
PROVIDERS: PCP Nurse Practitioner Adult Health; Visit Provider Internal Medicine
DX: C71.9 Malignant neoplasm of brain, unspecified (principal)
CPT/HCPCS: 36415; 80053; 81003; 81015; 85025

== ENCOUNTER 2022-04-10 00:55 | Outpatient (CLI) | payer MEDICAID, SELFPAY ==
--- NOTE | 2022-04-10 | DI.MRI_ITS ---
Exam(s) MR BRAIN WO/W EXAM: MR BRAIN WO/W CLINICAL HISTORY: F/U GLIOBLASTOMA, C71.9,ON TREATMENT TECHNIQUE: Multiplanar multisequence MRI of the brain was performed. Both noninfused and contrast i nfused sequences were performed. IV Contrast injected was 15 cc Dotarem. COMPARISON: MR MR BRAIN WO/W from 10/15/2021 FINDINGS: CEREBRAL PARENCHYMA: The right-sided surgical bed remains stable with no new abnormal ring enhancement nor nodular enhance ment in this region nor new focal meningeal enhancement. No new significant edema around the surgica l site. However, higher up in the immediate right periventricular white matter there is a new area of restric rohini diffusion evident on DWI which measures approximately 1.3 by 0.8 cm FLOW VOIDS: The expected flow void are noted. No evidence of obvious aneurysm nor obvious vascular ma lformation. PARANASAL SINUSES: The visualized paranasal sinuses appear unremarkable. ORBITS: No obvious abnormal findings. IMPRESSION: 1. Continued stable appearance of the right temporal operative site. No new nodularity nor enhanceme nt nor increasing edema at this level. No new ring-enhancing lesions in the brain. 2. However, there is now a new area of restricted diffusion signal in the immediate right periventric ular white matter adjacent to the uppermost aspect of the right lateral ventricle. Consistent with r ecent ischemic event at this level. DATA REPOSITORY:
[2022-04-10] MEDS: Normal Saline Flush 10 ML SYR IVP (11:59)
== END 2022-04-10 01:15 ==
LOC: DI 00:55
PROVIDERS: PCP Nurse Practitioner Adult Health; Visit Provider Internal Medicine
DX: C71.9 Malignant neoplasm of brain, unspecified (principal); R94.02 Abnormal brain scan
CPT/HCPCS: 70553

== ENCOUNTER 2022-04-23 02:28 | Outpatient (CLI) | payer MEDICAID, SELFPAY ==
[2022-04-23 08:20] LABS: Abs Immature Grans 0.03 10^3/uL (0.0-0.06); Absolute Basophil Count 0.07 10^3/uL (0.0-0.2); Absolute Eosinophil Count 0.12 10^3/uL (0.0-0.7); Absolute Lymphocyte Count 1.53 10^3/uL (1.2-3.4); Absolute Monocyte Count 0.63 10^3/uL (0.1-0.8); Basophils % 0.7; Eosinophils % 1.3; HCT 44.6 % (40.0-50.0); Immature Grans % 0.3; Lymphocytes % 16.3; MCH 30.6 pg (27.0-33.0); MCHC 33.6 % (32.0-36.0); MCV 91 fL (80-95); MPV 8.1 fL (8.0-11.0); Monocytes % 6.7; Neutrophils % 74.7; Platelet Count 181 10^3/uL (130-400); RDW 15.9 % (11.8-14.1); RDW-SD 53.1 fL; WBC 9.38 10^3/uL (4.4-10.8)
[2022-04-23 08:22] LABS: Bilirubin Negative (Negative); Blood Small (Negative); Clarity Clear (Clear); Glucose Negative (Negative); Ketones Negative (Negative); Leukocyte Esterase Negative (Negative); Nitrite Negative (Negative); Specific Gravity 1.025 (1.005-1.025); Urobilinogen 0.2 mg/dL (Up to 0.2); pH 5.5 (5-8)
[2022-04-23 08:31] LABS: Bacteria Rare HPF (Negative); Epithelial Cells Negative HPF (Negative); Other Cells Negative (Negative); WBC Negative HPF (0-5)
[2022-04-23 08:32] LABS: C & S Indicated? No; Casts Negative LPF (Negative); Crystals Negative HPF (Negative); Mucus Trace (Negative)
[2022-04-23 08:41] LABS: ALT 17 U/L (16-63); AST 15 U/L (15-37); Albumin 3.8 g/dL (3.4-5.0); Alkaline Phosphatase 64 U/L (46-116); Anion Gap 4.4 mmol/L (3-11); BUN 14 mg/dL (7-18); Bilirubin, Total 0.4 mg/dL (0.2-1.0); CO2 30.6 mmol/L (21.0-32.0); CREATININE 0.9 mg/dL (0.70-1.30); Calcium 9.3 mg/dL (8.5-10.1); Chloride 99 mmol/L (98-107); Estimated GFR 95.97 (mL/min/1.73m2); Glucose 94 mg/dL (74-106); Potassium 4.1 mmol/L (3.5-5.1); Sodium 134 mmol/L (136-145); Total Protein 7.5 g/dL (6.4-8.2)
== END 2022-04-23 02:29 | disposition home or self-care (01) ==
PROVIDERS: PCP Nurse Practitioner Adult Health; Visit Provider Internal Medicine
DX: C71.9 Malignant neoplasm of brain, unspecified (principal); R82.998 Other abnormal findings in urine
CPT/HCPCS: 36415; 80053; 81003; 81015; 85025

== ENCOUNTER 2022-05-07 02:54 | Outpatient (CLI) | payer MEDICAID, SELFPAY ==
[2022-05-07 10:05] LABS: Bilirubin Negative (Negative); Blood Small (Negative); Clarity Clear (Clear); Glucose Negative (Negative); Ketones Negative (Negative); Leukocyte Esterase Negative (Negative); Nitrite Negative (Negative); Urobilinogen 0.2 mg/dL (Up to 0.2); pH 5.5 (5-8)
[2022-05-07 10:07] LABS: Abs Immature Grans 0.02 10^3/uL (0.0-0.06); Absolute Basophil Count 0.05 10^3/uL (0.0-0.2); Absolute Eosinophil Count 0.08 10^3/uL (0.0-0.7); Absolute Lymphocyte Count 1.15 10^3/uL (1.2-3.4); Absolute Monocyte Count 0.54 10^3/uL (0.1-0.8); Absolute Neutrophil Count 5.09 10^3/uL (1.2-6.7); Basophils % 0.7; Eosinophils % 1.2; HCT 43.9 % (40.0-50.0); HGB 15.1 g/dL (13.5-17.5); Immature Grans % 0.3; Lymphocytes % 16.6; MCH 31.6 pg (27.0-33.0); MCHC 34.4 % (32.0-36.0); MCV 92 fL (80-95); MPV 8.1 fL (8.0-11.0); Monocytes % 7.8; Neutrophils % 73.4; Platelet Count 182 10^3/uL (130-400); RBC 4.78 10^6/uL (4.36-5.78); RDW 15.9 % (11.8-14.1); RDW-SD 52.5 fL; WBC 6.93 10^3/uL (4.4-10.8)
[2022-05-07 10:13] LABS: Bacteria Rare HPF (Negative); C & S Indicated? No; Casts Negative LPF (Negative); Crystals Negative HPF (Negative); Epithelial Cells Rare HPF (Negative); Mucus Moderate (Negative); WBC 0-2 HPF (0-5)
[2022-05-07 10:39] LABS: ALT 15 U/L (16-63); AST 16 U/L (15-37); Albumin 3.7 g/dL (3.4-5.0); Alkaline Phosphatase 67 U/L (46-116); Anion Gap 5.9 mmol/L (3-11); BUN 14 mg/dL (7-18); Bilirubin, Total 0.4 mg/dL (0.2-1.0); CO2 31.1 mmol/L (21.0-32.0); Calcium 9.6 mg/dL (8.5-10.1); Chloride 97 mmol/L (98-107); Estimated GFR 84.57 (mL/min/1.73m2); Glucose 110 mg/dL (74-106); Potassium 4.5 mmol/L (3.5-5.1); Sodium 134 mmol/L (136-145); Total Protein 7.5 g/dL (6.4-8.2)
== END 2022-05-07 02:55 | disposition home or self-care (01) ==
LOC: LBO 02:55
PROVIDERS: PCP Nurse Practitioner Adult Health; Visit Provider Internal Medicine
DX: C71.9 Malignant neoplasm of brain, unspecified (principal)
CPT/HCPCS: 36415; 80053; 81003; 81015; 85025

== ENCOUNTER 2022-06-25 01:20 | Outpatient (CLI) | payer MEDICAID, SELFPAY ==
--- NOTE | 2022-06-25 | DI.MRI_ITS ---
Exam(s) MR BRAIN WO/W EXAM: MR BRAIN WO/W CLINICAL HISTORY: GLIOBLASTOMA, C71.9, ANTINEOPLASTIC CHEMOTHERAPY, Z51.11. TECHNIQUE: Multiplanar multisequence MRI of the brain was performed. CONTRAST MATERIAL: IV Contrast: 15 ML of Dotarem contrast administered. COMPARISON: MR MR BRAIN WO/W from 04/10/2022 FINDINGS: VENTRICLES AND EXTRA AXIAL SPACES: Normal in size and morphology for the patient's age. HEMORRHAGE: None. CEREBRAL PARENCHYMA: Stable area encephalomalacia in the right temporal lobe. Mild interval increase in size of small areas of restricted diffusion in the white matter above the right lateral ventricle . Areas of high signal in this region on T2 and FLAIR sequences appears slightly larger compared to prior. No associated enhancement. No associated hemorrhage. MIDLINE SHIFT: None. BRAINSTEM/CEREBELLUM: Normal. CALVARIUM: right craniotomy defect again noted. ENHANCEMENT: No suspicious enhancement identified. VISUALIZED PARANASAL SINUSES/MASTOIDS: Mucosal thickening left maxillary sinuses and several ethmoid sinuses. Mild mucous mucous retention within the sphenoid sinuses. These findings are new compared to prior. Fluid again noted in the right mastoid air cells. IMPRESSION: Stable encephalomalacia in the surgical site. Mildly increase in size of area of high signal and restricted diffusion above the right lateral ventr icle. New sinus disease. DATA REPOSITORY:
[2022-06-25] MEDS: Normal Saline Flush 10 ML SYR IVP (13:02)
[2022-06-25] MEDS: Gadoterate meglumine 20 ML VIAL 15 ML IVP (13:02)
== END 2022-06-25 01:40 ==
LOC: DI 01:20
PROVIDERS: PCP Nurse Practitioner Adult Health; Visit Provider Internal Medicine
DX: C71.9 Malignant neoplasm of brain, unspecified (principal); Z51.11 Encounter for antineoplastic chemotherapy
CPT/HCPCS: 70553

== ENCOUNTER 2022-07-24 01:55 | Outpatient (CLI) | payer MEDICARE, SELFPAY ==
[2022-07-24 08:40] LABS: Abs Immature Grans 0.04 10^3/uL (0.0-0.06); Absolute Basophil Count 0.07 10^3/uL (0.0-0.2); Absolute Lymphocyte Count 1.62 10^3/uL (1.2-3.4); Absolute Monocyte Count 0.62 10^3/uL (0.1-0.8); Absolute Neutrophil Count 5.44 10^3/uL (1.2-6.7); Basophils % 0.9; Eosinophils % 1.3; HCT 41.1 % (40.0-50.0); HGB 14.2 g/dL (13.5-17.5); Immature Grans % 0.5; Lymphocytes % 20.5; MCH 31.6 pg (27.0-33.0); MCHC 34.5 % (32.0-36.0); MCV 92 fL (80-95); MPV 8.3 fL (8.0-11.0); Monocytes % 7.9; Neutrophils % 68.9; Platelet Count 153 10^3/uL (130-400); RBC 4.49 10^6/uL (4.36-5.78); RDW 15.5 % (11.8-14.1); RDW-SD 51.5 fL; WBC 7.89 10^3/uL (4.4-10.8)
[2022-07-24 08:43] LABS: Bilirubin Negative (Negative); Blood Small (Negative); Clarity Clear (Clear); Glucose Negative (Negative); Ketones Negative (Negative); Leukocyte Esterase Negative (Negative); Nitrite Negative (Negative); Urobilinogen 0.2 mg/dL (Up to 0.2); pH 5.5 (5-8)
[2022-07-24 08:52] LABS: Bacteria Negative HPF (Negative); C & S Indicated? No; Casts Negative LPF (Negative); Crystals Negative HPF (Negative); Epithelial Cells Negative HPF (Negative); Mucus Trace (Negative); WBC 0-2 HPF (0-5)
[2022-07-24 08:56] LABS: ALT 21 U/L (16-63); AST 17 U/L (15-37); Albumin 3.5 g/dL (3.4-5.0); Alkaline Phosphatase 64 U/L (46-116); BUN 13 mg/dL (7-18); Bilirubin, Total 0.4 mg/dL (0.2-1.0); CREATININE 0.9 mg/dL (0.70-1.30); Calcium 9.4 mg/dL (8.5-10.1); Chloride 97 mmol/L (98-107); Estimated GFR 95.97 (mL/min/1.73m2); Glucose 89 mg/dL (74-106); Potassium 3.8 mmol/L (3.5-5.1); Sodium 133 mmol/L (136-145); Total Protein 7.3 g/dL (6.4-8.2)
[2022-07-24] MEDS: Normal Saline Flush 10 ML SYR IJ (09:48)
[2022-07-24] MEDS: Normal Saline - Diluent 50 ML VIAL IJ (09:49)
[2022-07-24] MEDS: Omnipaque 350 MG/ML 500 ML BTL-Imaging package 100 ML IJ (09:50)
--- NOTE | 2022-07-24 09:51 | DI.CT_ITS ---
Exam(s) CT HEAD WO/W EXAM: CT HEAD WO/W CLINICAL HISTORY: GLIOBLASTOMA, C71.9; RESTARTED ON AVASTIN; RE-EVAL. TECHNIQUE: Imaging Protocol: Axial computed tomography images with coronal and sagittal reformatted images were created and reviewed. CONTRAST MATERIAL: Intravenous: Omnipaque 350 contrast volume:100 mL COMPARISON: MR MR BRAIN WO/W from 06/25/2022 FINDINGS: Ventricles and Extra axial spaces: Normal in size and morphology for the patient's age. Hemorrhage: None. Cerebral parenchyma: There is encephalomalacia involving the right temporal lobe. There are areas of decreased attenuation in the white matter with a similar distribution compared to the MRI of the bra in from 06/25/2022. Parenchymal calcifications are seen. Following contrast administration no signif icant enhancement is identified. Enhancement: No suspicious enhancement. [place]: Unremarkable. Midline shift: None. Brainstem/Cerebellum: Normal. Calvarium: Postsurgical changes of a right temporal parietal craniotomy. Visualized Paranasal sinuses/Mastoids: There is an air-fluid level in the left maxillary sinus. The remaining visualized paranasal sinuses and mastoid air cells are clear. IMPRESSION: 1. Stable postsurgical changes seen in the right temporal lobe. No abnormal enhancement is seen at t his time. 2. New air-fluid level seen in the left maxillary sinus. This may represent sinusitis. Please corre late clinically. RADIATION DOSE DELIVERED: 1,675.02mGy.cm Total DLP 1,675.02mGy.cm Total DLP DATA REPOSITORY: All CT scans at this facility are submitted to the National Radiology Data Registry (NRDR) Dose Index Registry (DIR) with the [employer] (ACR). RADIATION OPTIMIZATION: All CT scans at this facility use at least one of these dose optimization te chniques: automated exposure control; mA and/or kV adjustment per patient size (includes targeted exa ms where dose is matched to clinical indication); or iterative reconstruction.
== END 2022-07-24 02:15 ==
LOC: DI 01:55
PROVIDERS: PCP Nurse Practitioner Adult Health; Visit Provider Internal Medicine
DX: C71.9 Malignant neoplasm of brain, unspecified (principal); Z98.890 Other specified postprocedural states
CPT/HCPCS: 36415; 80053; 70470; 81003; 81015; 85025

== ENCOUNTER 2022-08-21 01:17 | Outpatient (CLI) | payer MEDICARE, SELFPAY ==
--- NOTE | 2022-08-21 | DI.MRI_ITS ---
Exam(s) MR BRAIN WO/W EXAM: MR BRAIN WO/W CLINICAL HISTORY: GLIOBLASTOMA C71.9 RESTAGING. TECHNIQUE: Multiplanar multisequence MRI of the brain was performed. CONTRAST MATERIAL: IV Contrast: 15 ML of Dotarem contrast administered. MR MR BRAIN WO/W from 06/25/2022 FINDINGS: VENTRICLES AND EXTRA AXIAL SPACES: Stable dilatation of the right lateral ventricle. HEMORRHAGE: None. CEREBRAL PARENCHYMA: Stable appearance of encephalomalacia of the right temporal and adjacent parieta l lobes. Stable stable high signal on T2 and FLAIR images adjacent to the right lateral ventricle, i n the white matter. No visible enhancement. Findings may be secondary to prior ischemia. No new fi ndings. MIDLINE SHIFT: None. BRAINSTEM/CEREBELLUM: Normal. CALVARIUM: Stable right craniotomy defect. ENHANCEMENT: No suspicious enhancement identified. VISUALIZED PARANASAL SINUSES/MASTOIDS: Minimal ethmoid and sphenoid sinus mucosal thickening. = IMPRESSION: no evidence of a current mass or metastatic lesions. No acute abnormalities. DATA REPOSITORY:
[2022-08-21 07:52] LABS: Bilirubin Negative (Negative); Blood Trace-intact (Negative); Clarity Clear (Clear); Glucose Negative (Negative); Ketones Negative (Negative); Leukocyte Esterase Negative (Negative); Nitrite Negative (Negative); Specific Gravity 1.015 (1.005-1.025); Urobilinogen 0.2 mg/dL (Up to 0.2); pH 6.5 (5-8)
[2022-08-21 07:58] LABS: WBC Negative HPF (0-5)
[2022-08-21 07:59] LABS: Bacteria Negative HPF (Negative); C & S Indicated? No; Casts 0-2 Hyaline LPF (Negative); Crystals Negative HPF (Negative); Epithelial Cells Rare HPF (Negative); Mucus Negative (Negative); RBC 0-2 HPF (0-2)
[2022-08-21 08:12] LABS: Abs Immature Grans 0.03 10^3/uL (0.0-0.06); Absolute Basophil Count 0.07 10^3/uL (0.0-0.2); Absolute Eosinophil Count 0.14 10^3/uL (0.0-0.7); Absolute Lymphocyte Count 1.54 10^3/uL (1.2-3.4); Absolute Monocyte Count 0.76 10^3/uL (0.1-0.8); Absolute Neutrophil Count 4.53 10^3/uL (1.2-6.7); HCT 42.6 % (40.0-50.0); HGB 14.8 g/dL (13.5-17.5); Immature Grans % 0.4; Lymphocytes % 21.8; MCH 31.4 pg (27.0-33.0); MCHC 34.7 % (32.0-36.0); MCV 90 fL (80-95); Monocytes % 10.7; Neutrophils % 64.1; Platelet Count 140 10^3/uL (130-400); RBC 4.72 10^6/uL (4.36-5.78); RDW 15.3 % (11.8-14.1); RDW-SD 50.8 fL; WBC 7.07 10^3/uL (4.4-10.8)
[2022-08-21 08:24] LABS: ALT 19 U/L (16-63); AST 18 U/L (15-37); Albumin 3.7 g/dL (3.4-5.0); Alkaline Phosphatase 65 U/L (46-116); Anion Gap 6.4 mmol/L (3-11); BUN 9 mg/dL (7-18); Bilirubin, Total 0.3 mg/dL (0.2-1.0); CO2 31.6 mmol/L (21.0-32.0); CREATININE 0.8 mg/dL (0.70-1.30); Calcium 9.7 mg/dL (8.5-10.1); Chloride 92 mmol/L (98-107); Estimated GFR 99.44 (mL/min/1.73m2); Glucose 68 mg/dL (74-106); Potassium 4.2 mmol/L (3.5-5.1); Sodium 130 mmol/L (136-145); Total Protein 7.8 g/dL (6.4-8.2)
[2022-08-21] MEDS: Gadoterate meglumine 20 ML SYRINGE IVP (08:47)
[2022-08-21] MEDS: Normal Saline Flush 10 ML SYR IVP (08:48)
== END 2022-08-21 01:37 ==
LOC: DI 01:17
PROVIDERS: PCP Nurse Practitioner Adult Health; Visit Provider Internal Medicine
DX: C71.9 Malignant neoplasm of brain, unspecified (principal)
CPT/HCPCS: 70553; 80053; 81003; 81015; 85025

== ENCOUNTER 2022-08-21 10:03 | Outpatient (REF) | payer MEDICARE, SELFPAY ==
[2022-08-21 09:52] LABS: Creatinine,Urine 63.01 mg/dL
[2022-08-21 09:54] LABS: Creatinine,24hr Ur 0.76 g/24hr (0.95-2.49); Total Volume 1200 ml
== END 2022-08-21 10:04 | disposition home or self-care (01) ==
LOC: LBN 10:03
PROVIDERS: PCP Nurse Practitioner Adult Health; Visit Provider Internal Medicine
DX: C71.9 Malignant neoplasm of brain, unspecified (principal); Z51.11 Encounter for antineoplastic chemotherapy
CPT/HCPCS: 81050; 82570

== ENCOUNTER → 2022-10-16 02:29 | Outpatient (CLI) | payer MEDICARE, SELFPAY ==
[2022-10-16] MEDS: Normal Saline Flush 10 ML SYR IVP (10:20)
[2022-10-16] MEDS: Gadoterate meglumine 20 ML VIAL IVP (10:20)
--- NOTE | 2022-10-16 10:45 | DI.MRI_ITS ---
Exam(s) MR BRAIN WO/W EXAM: MR BRAIN WO/W CLINICAL HISTORY: GLIOBLASTOMA C71.9 POST RE-RADIATION TECHNIQUE: Multiplanar multisequence MRI of the brain was performed. Both noninfused and contrast i nfused sequences were performed. IV Contrast injected was 15 cc Dotarem. COMPARISON: MR MR BRAIN WO/W from 04/10/2022 MR MR BRAIN WO/W from 06/25/2022 MR MR BRAIN WO/W from 08/21/2022 FINDINGS: CEREBRAL PARENCHYMA: Appearance is stable when compared to the most recent MRI scan of 08/21/2022. T he operative site in the right temporal lobe appears unchanged with no new abnormal enhancement at th is level noted nor elsewhere in the brain. The amount of signal abnormality in the right rajat ventri cular and supra ventricular region is unchanged. The amount of restricted diffusion at this level in the right periventricular region is unchanged. There is no new signal abnormality nor enhancement i n the opposite side of the brain. No shift of midline structures. Ex vacuo dilatation of the right lateral ventricle is unchanged. There is no significant focal signal abnormality in the cerebellar hemispheres nor within the berny, m idbrain, and thalami. There are no new ring enhancing lesions in the brain. There is no new abnormal meningeal enhancement . PITUITARY GLAND: No mass nor parasellar abnormality. No obvious abnormality in the cavernous sinuses. FLOW VOIDS: The expected flow void are noted. No evidence of obvious aneurysm nor obvious vascular ma lformation. PARANASAL SINUSES: The visualized paranasal sinuses appear unremarkable. ORBITS: No obvious abnormal findings. IMPRESSION: Stable appearance without significant change from MRI scan of 08/21/2022 and 06/25/2022. DATA REPOSITORY:
[2022-10-16 11:01] LABS: Abs Immature Grans 0.02 10^3/uL (0.0-0.06); Absolute Basophil Count 0.05 10^3/uL (0.0-0.2); Absolute Eosinophil Count 0.18 10^3/uL (0.0-0.7); Absolute Neutrophil Count 3.39 10^3/uL (1.2-6.7); Basophils % 0.9; Eosinophils % 3.1; HCT 39.2 % (40.0-50.0); HGB 13.6 g/dL (13.5-17.5); Immature Grans % 0.3; Lymphocytes % 26.1; MCH 30.9 pg (27.0-33.0); MCHC 34.7 % (32.0-36.0); MCV 89 fL (80-95); MPV 8.1 fL (8.0-11.0); Monocytes % 10.5; Neutrophils % 59.1; Platelet Count 141 10^3/uL (130-400); RDW 14.6 % (11.8-14.1); WBC 5.74 10^3/uL (4.4-10.8)
[2022-10-16 11:10] LABS: Bilirubin Negative (Negative); Blood Trace-intact (Negative); Clarity Clear (Clear); Glucose Negative (Negative); Ketones Negative (Negative); Leukocyte Esterase Negative (Negative); Nitrite Negative (Negative); Specific Gravity 1.015 (1.005-1.025); Urobilinogen 0.2 mg/dL (Up to 0.2); pH 8.5 (5-8)
[2022-10-16 11:19] LABS: Bacteria Negative HPF (Negative); C & S Indicated? No; Casts Negative LPF (Negative); Crystals Negative HPF (Negative); Epithelial Cells Negative HPF (Negative); Mucus Negative (Negative); WBC 0-2 HPF (0-5)
[2022-10-16 11:23] LABS: ALT 12 U/L (16-63); AST 17 U/L (15-37); Albumin 3.4 g/dL (3.4-5.0); Alkaline Phosphatase 58 U/L (46-116); Anion Gap 8.5 mmol/L (3-11); BUN 10 mg/dL (7-18); Bilirubin, Total 0.4 mg/dL (0.2-1.0); CO2 28.5 mmol/L (21.0-32.0); CREATININE 0.8 mg/dL (0.70-1.30); Calcium 9.8 mg/dL (8.5-10.1); Chloride 99 mmol/L (98-107); Estimated GFR 98.83 (mL/min/1.73m2); Glucose 82 mg/dL (74-106); Potassium 3.7 mmol/L (3.5-5.1); Sodium 136 mmol/L (136-145)
== END ==
PROVIDERS: PCP Nurse Practitioner Adult Health; Visit Provider Internal Medicine
DX: C71.9 Malignant neoplasm of brain, unspecified (principal)
CPT/HCPCS: 36415; 70553; 80053; 81003; 81015; 85025

== ENCOUNTER → 2022-12-11 00:05 | Outpatient (CLI) | payer MEDICARE, SELFPAY ==
[2022-12-11] MEDS: Gadoterate meglumine 20 ML SYRINGE IVP (11:05)
[2022-12-11] MEDS: Normal Saline Flush 10 ML SYR IVP (11:08)
--- NOTE | 2022-12-11 11:20 | DI.MRI_ITS ---
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 CONTRAST MATERIAL: IV Contrast: 15 mL of Dotarem contrast administered. COMPARISON: MR MR BRAIN WO/W from 04/10/2022 MR MR BRAIN WO/W from 06/25/2022 MR MR BRAIN WO/W from 08/21/2022 MR MR BRAIN WO/W from 10/16/2022 FINDINGS: VENTRICLES AND EXTRA AXIAL SPACES: There is unchanged enlargement of the right ventricular system con sistent with prior surgery. HEMORRHAGE: None. CEREBRAL PARENCHYMA: There is again seen a resection site in the right temporal lobe which appears un changed in size. There is stable associated hyperintense signal on the FLAIR and T2 weighted images. There is stable hyperintense signal seen in the periventricular white matter. Following contrast a dministration, there is persistent mild increased enhancement within the right periventricular white matter in this area. The restricted diffusion seen has decreased compared to the prior examination. No new areas of restricted diffusion are seen. MIDLINE SHIFT: None. BRAINSTEM/CEREBELLUM: Normal. CALVARIUM: Normal. ENHANCEMENT: Please see the above section under cerebral parenchyma. VISUALIZED PARANASAL SINUSES/MASTOIDS: There is stable fluid seen the right mastoid air cells. [place]ER [place] SMITH: Normal flow void. PITUITARY GLAND: Unremarkable. OTHER FINDINGS: IMPRESSION: 1. Postsurgical changes are again seen in the right temporal lobe consistent with prior resection. 2. Stable persistent mild enhancement seen in the right periventricular white matter. 3. Overall no significant change in appearance of the brain since 10/16/2022. DATA REPOSITORY:
== END ==
PROVIDERS: PCP Nurse Practitioner Adult Health; Visit Provider Internal Medicine
DX: Z98.890 Other specified postprocedural states (principal); C71.9 Malignant neoplasm of brain, unspecified
CPT/HCPCS: 70553

== ENCOUNTER → 2023-02-05 01:33 | Outpatient (CLI) | payer MEDICARE, SELFPAY ==
[2023-02-05] MEDS: Gadoterate meglumine 20 ML SYRINGE 16 ML IVP (10:44)
[2023-02-05] MEDS: Normal Saline Flush 10 ML SYR IVP (10:46)
--- NOTE | 2023-02-05 11:15 | DI.MRI_ITS ---
Exam(s) MR BRAIN WO/W EXAM: MR BRAIN WO/W CLINICAL HISTORY: GLIOBLASTOMA, C71.9, ASSESS TREATMENT RESPONSE. TECHNIQUE: Multiplanar multisequence MRI of the brain was performed. CONTRAST MATERIAL: IV Contrast: 16 ML of Dotarem contrast administered. COMPARISON: MR MR BRAIN WO/W from 12/11/2022 FINDINGS: VENTRICLES AND EXTRA AXIAL SPACES: Stable mild dilatation of the right lateral ventricle HEMORRHAGE: None. CEREBRAL PARENCHYMA: No new focus of restricted diffusion to suggest acute infarct. resection site ri ght temporal lobe with mild surrounding high signal. High signal again noted extending along the rig ht lateral ventricle. Stable mild amount of enhancement within this region. No new abnormal areas o f enhancement. MIDLINE SHIFT: None. BRAINSTEM/CEREBELLUM: Normal. CALVARIUM: Right temporal craniotomy. VISUALIZED PARANASAL SINUSES/MASTOIDS: Small amount of fluid again noted in right mastoid air cells. Orbits: Unremarkable. Pituitary: Normal. Vasculature: Normal flow voids. IMPRESSION: Stable appearance right temporal resection site. Stable areas of postcontrast enhancement in the rig ht periventricular white matter. DATA REPOSITORY:
== END ==
PROVIDERS: PCP Nurse Practitioner Adult Health; Visit Provider Internal Medicine
DX: C71.9 Malignant neoplasm of brain, unspecified (principal)
CPT/HCPCS: 70553

== ENCOUNTER → 2023-04-02 02:15 | Outpatient (CLI) | payer MEDICARE, SELFPAY ==
--- NOTE | 2023-04-02 | DI.MRI_ITS ---
Exam(s) MR BRAIN WO/W EXAM: MR BRAIN WO/W CLINICAL HISTORY: F/U GLIOBLASTOMA,C71.9,ENCOUNTER FOR CHEMO,Z51.11,ASSESS RESPONSE TO RX TECHNIQUE: Multiplanar multisequence MRI of the brain was performed. Both noninfused and contrast i nfused sequences were performed. IV Contrast injected was 14 cc Dotarem. COMPARISON: MR MR BRAIN WO/W from 02/05/2023 FINDINGS: CEREBRAL PARENCHYMA: The right temporal lobe resection site appears stable with unchanged amount of w yonatan matter signal abnormality and stable mild amount of enhancement within this region in the immedi ate right periventricular area again noted. Ventricular size is unchanged. No shift. There is no new significant signal abnormality in the cerebellar hemispheres nor within the berny, mid brain, and thalami. There are no new ring-enhancing lesions in the brain nor new abnormal meningeal enhancement. There is no abnormal signal abnormality in the periventricular white matter. DWI: The amount of restricted diffusion in the area of remaining enhancement in the right periventric ular region appears unchanged. There are no areas of restricted diffusion to suggest acute ischemic event. PITUITARY GLAND: No mass nor parasellar abnormality. No obvious abnormality in the cavernous sinuses. FLOW VOIDS: The expected flow void are noted. No evidence of obvious aneurysm nor obvious vascular ma lformation. PARANASAL SINUSES: The visualized paranasal sinuses appear unremarkable. Fluid in the right mastoid a ir cells is unchanged. ORBITS: No obvious abnormal findings. IMPRESSION: As above. Minimal if any significant change when compared to the most recent MRI scan of 02/05/2023. DATA REPOSITORY:
[2023-04-02] MEDS: Gadoterate meglumine 20 ML VIAL IVP (10:36)
[2023-04-02] MEDS: Normal Saline Flush 10 ML SYR IVP (10:37)
== END ==
PROVIDERS: PCP Nurse Practitioner Adult Health; Visit Provider Internal Medicine
DX: C71.9 Malignant neoplasm of brain, unspecified (principal); Z51.11 Encounter for antineoplastic chemotherapy
CPT/HCPCS: 70553

== ENCOUNTER → 2023-05-28 03:57 | Outpatient (CLI) | payer MEDICARE, SELFPAY ==
--- NOTE | 2023-05-28 | DI.MRI_ITS ---
Exam(s) MR BRAIN WO/W EXAM: MR BRAIN WO/W CLINICAL HISTORY: F/U GLIOBLASTOMA,C71.9,ASSESS TREATMENT RESPONSE,Z15.89,Z15.09 TECHNIQUE: Multiplanar multisequence MRI of the brain was performed. CONTRAST MATERIAL: IV Contrast: 14 mL of Dotarem contrast administered. COMPARISON: MR MR BRAIN WO/W from 02/05/2023 MR MR BRAIN WO/W from 04/02/2023 FINDINGS: VENTRICLES AND EXTRA AXIAL SPACES: Normal in size and morphology for the patient's age. HEMORRHAGE: None. CEREBRAL PARENCHYMA: There is again seen an enhancing lesion in the right parietal lobe adjacent to t he right ventricle. There has been increased enhancement in the subependymal region of the right lat eral ventricle. There is also been slight interval increase in size of the enhancing lesion. There are stable areas of restricted diffusion associated with the mass. There is again seen partial resec tion of the right temporal lobe and stable enhancement of the adjacent dura. There is no midline luke ft. There is no mass effect. No space-occupying lesion identified. MIDLINE SHIFT: None. BRAINSTEM/CEREBELLUM: Normal. CALVARIUM: Prior right temporal craniotomy. ENHANCEMENT: Please see the above section under cerebral parenchyma. VISUALIZED PARANASAL SINUSES/MASTOIDS: Clear. [place] OF SMITH: Normal flow void. PITUITARY GLAND: Unremarkable. OTHER FINDINGS: IMPRESSION: New increased enhancement in the subependymal region along the right lateral ventricle adjacent to th e right parietal lesion. This was not present on the prior examination from 04/02/2023. The findings are suspicious for tumor progression. DATA REPOSITORY:
[2023-05-28 10:50] LABS: Abs Immature Grans 0.01 10^3/uL (0.0-0.06); Absolute Basophil Count 0.05 10^3/uL (0.0-0.2); Absolute Eosinophil Count 0.16 10^3/uL (0.0-0.7); Absolute Neutrophil Count 3.11 10^3/uL (1.2-6.7); Basophils % 1.1; Eosinophils % 3.6; HCT 34.5 % (40.0-50.0); HGB 12.1 g/dL (13.5-17.5); Immature Grans % 0.2; Lymphocytes % 18.1; MCH 33.2 pg (27.0-33.0); MCHC 35.1 % (32.0-36.0); MCV 95 fL (80-95); MPV 8.4 fL (8.0-11.0); Monocytes % 6.8; Neutrophils % 70.2; Platelet Count 157 10^3/uL (130-400); RBC 3.64 10^6/uL (4.36-5.78); RDW 13.2 % (11.8-14.1); RDW-SD 46.2 fL; WBC 4.43 10^3/uL (4.4-10.8)
[2023-05-28 11:09] LABS: ALT 16 U/L (16-63); AST 15 U/L (15-37); Albumin 3.3 g/dL (3.4-5.0); Alkaline Phosphatase 76 U/L (46-116); Anion Gap 6.4 mmol/L (3-11); BUN 9 mg/dL (7-18); Bilirubin, Total 0.3 mg/dL (0.2-1.0); CO2 32.6 mmol/L (21.0-32.0); Calcium 9.4 mg/dL (8.5-10.1); Chloride 96 mmol/L (98-107); Estimated GFR 84.05 (mL/min/1.73m2); Glucose 94 mg/dL (74-106); Magnesium 1.9 mg/dL (1.8-2.4); PHOSPHORUS 6.2 mg/dL (2.6-4.7); Sodium 135 mmol/L (136-145); Total Protein 6.8 g/dL (6.4-8.2)
== END ==
PROVIDERS: PCP Nurse Practitioner Adult Health; Visit Provider Internal Medicine
DX: C71.9 Malignant neoplasm of brain, unspecified (principal); Z15.89 Genetic susceptibility to other disease; Z15.09 Genetic susceptibility to other malignant neoplasm; Z51.11 Encounter for antineoplastic chemotherapy; Z98.890 Other specified postprocedural states; R94.02 Abnormal brain scan
CPT/HCPCS: 70553; 80053; 83735; 84100; 85025